=== PATIENT | female | born 1980 | race Caucasian/White ===

== ENCOUNTER 2023-03-17 17:41 | Emergency (ER) | payer OTHER, MEDICAID, SELFPAY ==
[2023-03-17] VITALS (7 sets, daily range): BP systolic 127–155; BP diastolic 72–97; PULSE 66–79; RESP 16–23; TEMP 36.7; O2SAT 96–99; BMI 33.5
[2023-03-17 18:40] LABS: Add Manual Diff / Slide Review NO; Basophils Absolute Auto 0 /uL (0-100); Basophils Percent Auto 0.7 % (0-2); Eosinophils Absolute Auto 100 /uL (0-450); Eosinophils Percent Auto 1.6 % (2-4); Hematocrit 39.4 % (36-46); Hemoglobin 13.4 g/dL (12.0-16.0); Lymphocytes Absolute Auto 2300 /uL (1100-4500); Lymphocytes Percent Auto 33.6 % (25-40); Mean Corpuscular HGB Conc 34.1 % (30-36); Mean Corpuscular Hemoglobin 28.6 PG (26-34); Mean Corpuscular Volume 83.9 fL (80-100); Monocytes Absolute Auto 400 /uL (0-900); Neutrophils Absolute Auto 4000 /uL (1500-7000); Neutrophils Percent Auto 58.1 % (50-75); Platelet Count 315 X10^3/uL (150-400); Red Cell Distribution Width 12.6 % (11.6-14.8); White Blood Cell Count 6.8 X10^3/uL (4.5-11.0)
[2023-03-17 18:52] LABS: Alanine Aminotransferase 23 IU/L (<35); Albumin Globulin Ratio 1.2 (1.0-2.8); Alkaline Phosphatase 47 U/L (38-126); Aspartate Aminotransferase 23 IU/L (14-36); BUN Creatinine Ratio 13.7 (6-22); Bilirubin Total 0.5 mg/dL (0.2-1.3); Blood Urea Nitrogen 7 mg/dL (7-17); Calcium 8.9 mg/dL (8.4-10.2); Carbon Dioxide 26 mmol/L (22-32); Chloride 100 mmol/L (98-107); Estimated Glomerular Filt Rate > 60 mL/min (>60); Globulin 3.3 g/dL (1.7-4.1); Glucose 186 mg/dL (70-100); HEMOLYSIS < 15 (0-50); Lipase 77 U/L (23-300); Potassium 3.7 mmol/L (3.4-5.1); Sodium 134 mmol/L (137-145); Total Protein 7.3 g/dL (6.3-8.2)
--- NOTE | 2023-03-17 19:05 | ED.GENADULT ---
HPI - General Adult General Chief complaint: Abdominal Pain Stated complaint: stomach pain, high blood sugars Time Seen by Provider: 03/17/23 18:06 Source: patient Mode of arrival: Ambulatory History of Present Illness HPI narrative: Patient is a 42-year-old female. History of insulin-dependent diabetes. Is here for evaluation of just over 24 hours of generalized abdominal discomfort, nausea, also having problems keeping her blood sugars under control. Her continuous glucose monitor have reported ?high? readings. She has been doing all of her insulin as directed. She denies any fevers. No urinary symptoms. No change in bowel habits. No prior abdominal surgeries. No sore throat or any other specific source of infection. Related Data Home Medications Medication Instructions Recorded Confirmed acyclovir 200 mg capsule 400 mg PO BID 03/17/23 03/17/23 albuterol sulfate 90 mcg/actuation 2 puff inhalation Q4-6H PRN asthma 03/17/23 03/17/23 aerosol inhaler (Ventolin HFA) atorvastatin 40 mg tablet 40 mg PO ONCE PM 03/17/23 03/17/23 cholecalciferol (vitamin D3) 03/17/23 dorzolamide 22.3 mg-timolol 6.8 1 drp EYE-BOTH BID 03/17/23 03/17/23 mg/mL eye drops [id number]-vfrm 225 mg/1.5 mL 225 mg SUBCUT QMONTH 03/17/23 03/17/23 subcutaneous auto-injector (Ajovy) gabapentin 300 mg capsule 300 mg PO 3XD 03/17/23 03/17/23 hydrochlorothiazide 12.5 mg capsule 12.5 mg PO DAILY 03/17/23 03/17/23 insulin aspart U-100 100 unit/mL See Rx Instructions .Route .COMPLEX 03/17/23 03/17/23 (3 mL) subcutaneous pen (Novolog FlexPen U-100 Insulin aspart) insulin glargine 100 unit/mL (3 See Rx Instructions .Route .COMPLEX 03/17/23 03/17/23 mL) subcutaneous pen (Basaglar KwikPen U-100 Insulin) lamotrigine 150 mg tablet 150 mg PO BID 03/17/23 03/17/23 latanoprost 0.005 % eye drops 1 drp EYE-BOTH ONCE PM 03/17/23 03/17/23 levothyroxine 100 mcg tablet 100 mcg PO DAILY 03/17/23 03/17/23 lisinopril 40 mg tablet 40 mg PO DAILY 03/17/23 03/17/23 lorazepam 0.5 mg tablet 0.5 mg PO BID PRN Sleep 03/17/23 03/17/23 norgestimate 0.25 mg-ethinyl 1 tab PO DAILY 03/17/23 03/17/23 estradiol 35 mcg tablet prazosin 5 mg capsule 5 mg PO ONCE PM 03/17/23 03/17/23 trazodone 100 mg tablet 100 mg PO ONCE PM 03/17/23 03/17/23 Allergies Allergy/AdvReac Type Severity Reaction Status Date / Time acetaminophen [From Chromo] Allergy Verified 03/17/23 18:25 hydrocodone [From Chromo] Allergy Verified 03/17/23 18:25 NSAIDS (Non-Steroidal Allergy Verified 03/17/23 18:25 Anti-Inflamma sumatriptan Allergy Verified 03/17/23 18:25 topiramate [From Topamax] Allergy Verified 03/17/23 18:25 [id number] Antimigraine Allergy Verified 03/17/23 18:25 Agents Review of Systems Review of Systems ROS Unobtainable: All systems reviewed & are unremarkable except as noted in HPI and below Patient History Social History Smoking Status: Never smoker Smoking Status: Never smoker Substance Use Type: does not use Exam Initial Vital Signs Initial Vital Signs: Vital Signs Temperature 98.1 F 03/17/23 18:10 Pulse Rate 79 03/17/23 18:10 Respiratory Rate 20 03/17/23 18:10 Blood Pressure 152/88 H 03/17/23 18:10 Pulse Oximetry 97 03/17/23 18:10 Oxygen Delivery Method Room Air 03/17/23 18:10 Const General: cooperative, comfortable and No ill appearing HENME Head: normal to inspection and normocephalic Resp Effort & Inspection: normal respiratory effort Auscultation: clear to auscultation bilaterally Cardio Rate: regular rate Rhythm: regular rhythm GI Inspection: normal to inspection and non-distended Palpation: soft, No firm, No guarding and tender (Diffuse) Neuro General: patient alert and patient awake Extrem General: normal to inspection and capillary refill normal Course Orders Ordered: ED Orders 03/17/23 18:15 Urine Microscopic Stat 03/17/23 18:16 EKG-12 Lead Stat 03/17/23 18:31 Complete Blood Count AUTO DIFF Stat Comprehensive Metabolic Panel Stat Lipase Stat 03/17/23 19:05 CT abdomen pelvis w con Stat Discontinued Medications Sodium Chloride (Normal Saline 0.9%) 1,000 mls @ 1,000 mls/hr IV BOLUS ONE Stop: 03/17/23 20:04 Last Infusion: 03/17/23 20:16 Dose: Infused Documented By: Admin: 03/17/23 19:12 Dose: 1,000 mls/hr Documented By: LEONEL Ondansetron HCl (Ondansetron 4 Mg/2 Ml Inj) 4 mg IV NOW PRN PRN Reason: Nausea And Vomiting Last Admin: 03/17/23 19:12 Dose: 4 mg Documented By: LEONEL Ondansetron HCl (Ondansetron 4 Mg Odt) 4 mg PO NOW PRN PRN Reason: Nausea And Vomiting Vital Signs Vital signs: Vital Signs - 8 hr 03/17/23 18:10 03/17/23 18:54 03/17/23 19:00 Temperature 98.1 F Pulse Rate 79 66 78 Respiratory Rate 20 23 Blood Pressure 152/88 H Pulse Oximetry 97 Oxygen Delivery Method Room Air 03/17/23 19:28 03/17/23 19:28 03/17/23 19:30 Temperature Pulse Rate 70 67 Respiratory Rate 22 17 Blood Pressure 127/90 Pulse Oximetry 97 96 Oxygen Delivery Method 03/17/23 19:30 03/17/23 19:51 03/17/23 19:51 Temperature Pulse Rate 76 Respiratory Rate 16 Blood Pressure 136/72 151/94 H Pulse Oximetry 98 Oxygen Delivery Method 03/17/23 20:00 03/17/23 20:00 Temperature Pulse Rate 77 Respiratory Rate 21 Blood Pressure 155/97 H Pulse Oximetry 99 Oxygen Delivery Method Medical Decision Making Lab Data Lab results reviewed: Yes I reviewed the patient's lab results. 03/17/23 18:31 03/17/23 18:31 Labs: Lab Results 03/17/23 03/17/23 Range/Units 18:15 18:31 WBC 6.8 (4.5-11.0) X10^3/uL RBC 4.70 (4.0-5.2) X10^6/uL Hgb 13.4 (12.0-16.0) g/dL Hct 39.4 (36-46) % MCV 83.9 (80-100) fL MCH 28.6 (26-34) PG MCHC 34.1 (30-36) % RDW 12.6 (11.6-14.8) % Plt Count 315 (150-400) X10^3/uL Neut % (Auto) 58.1 (50-75) % Lymph % (Auto) 33.6 (25-40) % [place] % (Auto) 6.0 (3-14) % Eos % (Auto) 1.6 L (2-4) % Baso % (Auto) 0.7 (0-2) % Neut # (Auto) 4000 (3267-3440) /uL Lymph # (Auto) 2300 (2641-7876) /uL [place] # (Auto) 400 (0-900) /uL Eos # (Auto) 100 (0-450) /uL Baso # (Auto) 0 (0-100) /uL Sodium 134 L (137-145) mmol/L Potassium 3.7 (3.4-5.1) mmol/L Chloride 100 (98-107) mmol/L Carbon Dioxide 26 (22-32) mmol/L BUN 7 (7-17) mg/dL Creatinine 0.51 L (0.52-1.04) mg/dL Estimated GFR > 60 (>60) mL/min BUN/Creatinine Ratio 13.7 (6-22) Glucose 186 H (70-100) mg/dL Calcium 8.9 (8.4-10.2) mg/dL Total Bilirubin 0.5 (0.2-1.3) mg/dL AST 23 (14-36) IU/L ALT 23 (<35) IU/L Alkaline Phosphatase 47 (38-126) U/L Total Protein 7.3 (6.3-8.2) g/dL Albumin 4.0 (3.5-5.0) g/dL Globulin 3.3 (1.7-4.1) g/dL Albumin/Globulin Ratio 1.2 (1.0-2.8) Lipase 77 (23-300) U/L Urine RBC None seen (0-5/HPF) Urine WBC 0-1/hpf (0-5/HPF) Ur Squamous Epith Cells 5-10 /hpf H (0-5/HPF) Ur Transition Epith Cell 0-1/hpf (0-5/HPF) Urine Bacteria Many (>30) H (None) Ur Culture Indicated? Cult not indicated Vol Urine Centrifuged 10ml (spun) Point of Care Testing Test Results Negative Urine Dip Bedside Urine Glucose 250 mg/dl Bedside Urine Bilirubin - Negative Bedside Urine Ketone - Negative Urine Specific [place] 1.010 Bedside Urine Occult Blood - Negative Bedside Urine pH 6.0 Bedside Urine Protein - Negative Bedside Urine Urobilinogen - Negative Bedside Urine Nitrite - Negative Bedside Urine Leukocytes - Negative Esterase Point of care testing: Point of Care Testing Test Results Negative Urine Dip Bedside Urine Glucose 250 mg/dl Bedside Urine Bilirubin - Negative Bedside Urine Ketone - Negative Urine Specific [place] 1.010 Bedside Urine Occult Blood - Negative Bedside Urine pH 6.0 Bedside Urine Protein - Negative Bedside Urine Urobilinogen - Negative Bedside Urine Nitrite - Negative Bedside Urine Leukocytes - Negative Esterase Imaging Data CT scan - abdomen/pelvis: Radiologist's Impression: PROCEDURE: CT ABDOMEN PELVIS W CON INDICATIONS: Generalized abdominal pain and hyperglycemia and diabetic TECHNIQUE: After the administration of intravenous contrast, axial sections acquired from the lung bases to the pubic symphysis. Coronal and sagittal reformats were performed. For radiation dose reduction, the following was used: automated exposure control, adjustment of mA and/or kV according to patient size. COMPARISON: None. FINDINGS: Image quality: Diagnostic. Lower Chest: No significant findings. ABDOMEN: Liver: No solid mass. Normal size. Moderate hepatic steatosis. Gallbladder: No radiopaque gallstones or wall thickening. Biliary ducts: No biliary dilation. Pancreas: No ductal dilation. Spleen: Size is within normal limits. Adrenal Glands: No adrenal nodules. Kidneys and Ureters: No hydronephrosis. No solid mass. No complex renal cystic lesion which requires follow up. Stomach and Bowel: Normal bowel caliber, without significant wall thickening. Moderate amount of stool in colon. Peritoneum: No abnormal intraperitoneal fluid. No free air. Ventral Wall: No hernia. Abdominal Nodes: No retroperitoneal or mesenteric adenopathy by size criteria. Vessels: Aorta and inferior vena cava are normal in size. PELVIS: Pelvic Organs: Unremarkable. Bladder: Bladder wall is mildly thickened with mild stranding. Pelvic Nodes: No enlarged lymph nodes. Miscellaneous: No inguinal hernias are seen. Bones: No aggressive osseous abnormality. IMPRESSION: 1. Bladder wall is mildly thickened with mild pericystic stranding suggesting suggesting cystitis. 2. Moderate amount of stool in colon. 3. Hepatic steatosis. MDM Narrative Medical decision making narrative: Blood sugars here in the emergency department relatively unremarkable. She has not in DKA. CT scan shows no acute pathology. She has no UTI symptoms. No indication for surgical consultation. No indication for antibiotics. She states she is feeling better after nausea and fluids. She has nausea medicine at home. Will discharge home with return precautions. Do changes to any of his medications currently. She expressed understanding and agreement. Discharge Plan Departure Patient Disposition: Home Clinical Impression: Hyperglycemia, Abdominal pain Instructions: DI for Abdominal Pain-Adult Activity Restrictions/Additional Instructions: Recommend that you continue to take all of your medications as directed. Tomorrow morning contact your primary care doctor for a follow-up. Return to the emergency department for new symptoms. Prescriptions: No Action latanoprost 0.005 % drops 1 drp EYE-BOTH ONCE PM atorvastatin 40 mg tablet 40 mg PO ONCE PM lamotrigine 150 mg tablet 150 mg PO BID norgestimate-ethinyl estradiol 0.25-35 mg-mcg tablet 1 tab PO DAILY levothyroxine 100 mcg tablet 100 mcg PO DAILY prazosin 5 mg capsule 5 mg PO ONCE PM lorazepam 0.5 mg tablet 0.5 mg PO BID PRN (Reason: Sleep) trazodone 100 mg tablet 100 mg PO ONCE PM hydrochlorothiazide 12.5 mg Capsule 12.5 mg PO DAILY gabapentin 300 mg capsule 300 mg PO 3XD dorzolamide-timolol 22.3-6.8 mg/mL drops 1 drp EYE-BOTH BID acyclovir 200 mg capsule 400 mg PO BID albuterol sulfate [Ventolin HFA] 90 mcg/actuation Hfa Aerosol Inhaler 2 puff INHALATION Q4-6H PRN (Reason: asthma) lisinopril 40 mg tablet 40 mg PO DAILY insulin aspart U-100 [Novolog FlexPen U-100 Insulin] 100 unit/mL (3 mL) insulin pen See Rx Instructions .ROUTE .COMPLEX Patient Comments: inject subcutaneously as directed PER SLIDING SCALE 100-150: 8 UN... (REFER TO PRESCRIPTION NOTES). Rx Instructions: inject subcutaneously as directed PER SLIDING SCALE 100-150: 8 UN... (REFER TO PRESCRIPTION NOTES). Instructions not finished in computer. insulin glargine [Basaglar KwikPen U-100 Insulin] 100 unit/mL (3 mL) Insulin Pen See Rx Instructions .ROUTE .COMPLEX Rx Instructions: 10 units AM 22 units PM Ajovy Autoinjector 225 mg/1.5 mL Auto-Injector 225 mg SUBCUT QMONTH cholecalciferol (vitamin D3) Referrals: Teressa Campos PA-C [Primary Care Provider] - Stand Alone Forms: Patient Portal/API
[2023-03-17] MEDS: ONDANSETRON 4 MG/2 ML INJ IV (19:12)
[2023-03-17] MEDS: SODIUM CHLORIDE 0.9% 1,000 ML 1000 ML IV (19:12)
[2023-03-17 21:00] LABS: Urine Volume 10mL (spun)
[2023-03-17 21:01] LABS: Bacteria Urine Many (>30); Culture Indicated Urine Cult Not Indicated; RBC Urine None Seen (0-5/HPF); Squamous Epithelial Cell Urine 5-10 /HPF (0-5/HPF); Transitional Epi Cells Urine 0-1/HPF (0-5/HPF); WBC Urine 0-1/HPF (0-5/HPF)
== END 2023-03-17 20:23 | disposition home or self-care (01) ==
PROVIDERS: Emergency Provider Emergency Medicine; PCP Physician Assistant
DX: E11.65 Type 2 diabetes mellitus with hyperglycemia (principal); R10.9 Unspecified abdominal pain; R11.2 Nausea with vomiting, unspecified
CPT/HCPCS: 36415; 74177; 80053; 81003; 81015; 81025; 83690; 85025; 96361; 96374; 99284; J2405

== ENCOUNTER 2023-11-04 14:40 | Emergency (ER) | payer OTHER, MEDICAID, SELFPAY ==
[2023-11-04] VITALS (11 sets, daily range): BP systolic 120–201; BP diastolic 65–109; PULSE 59–78; RESP 15–25; TEMP 36.1; O2SAT 91–99; BMI 36.0
--- NOTE | 2023-11-04 15:00 | DI.CT.S_ITS ---
PROCEDURE: CT ANGIO HEAD AND NECK INDICATIONS: Headache weakness numbness TECHNIQUE: After the administration of intravenous contrast, 1 mm thick sections acquired from the aortic arch through the [place]. 3-dimensional uwfmizh-msgpgmcrs-jaalbjwesz (MIP) and/or volume rendering reformats were acquired of the central intracranial vasculature and neck separately. For radiation dose reduction, the following was used: automated exposure control, adjustment of mA and/or kV according to patient size. COMPARISON: [facility], CT, CT STROKE, 11/04/2023, 15:04. FINDINGS: Image quality: Diagnostic. BRAIN: See separately dictated CT head report 11/04/2023. HEAD CT ANGIOGRAPHY: Anterior circulation: Intracranial internal carotid arteries are normal in size and flow. The flow within the paired anterior cerebral arteries is normal and symmetric. The flow within the middle cerebral arteries is normal and symmetric. The anterior communicating artery is seen. No aneurysms are seen. Posterior circulation: Visualized portions of the vertebral arteries demonstrate normal caliber, and join to form a normal appearing basilar artery. Flow within the posterior cerebral arteries is normal and symmetric. No aneurysms are seen. NECK CT ANGIOGRAPHY: Carotid system: The great vessels demonstrate a conventional anatomy as they arise from the aortic arch. The origins of the common carotid arteries appear patent. The common carotid arteries demonstrate normal caliber and courses. The bifurcation regions are both widely patent. The internal carotid arteries demonstrate normal calibers and courses. Posterior circulation: The origins of the vertebral arteries both appear widely patent. The more superior extracranial portions of both vertebral arteries also demonstrate normal courses and calibers. They join to form a normal appearing basilar artery. Soft tissues: Visualized neck soft tissues demonstrate no suspicious abnormalities. Bones: No suspicious bony lesions. Visualized cervical spine appears normally aligned. IMPRESSION: No significant intracranial arterial abnormality is seen. No significant abnormality is seen within the arteries of the neck. Any quantitative measurements of stenosis were performed using NASCET criteria. Dictated by: Nella Iglesias M.D. on 11/04/2023 at 15:43 Approved by: Nella Iglesias M.D. on 11/04/2023 at 15:44
--- NOTE | 2023-11-04 15:00 | DI.CT.S_ITS ---
PROCEDURE: CT STROKE INDICATIONS: Headache weakness numbness TECHNIQUE: Noncontrast 4.5 mm thick angled axial sections acquired from the foramen magnum to the vertex, with coronal reformats. For radiation dose reduction, the following was used: automated exposure control, adjustment of mA and/or kV according to patient size. COMPARISON: None. FINDINGS: Image quality: Diagnostic. CSF spaces: Basal cisterns are patent. No extra-axial fluid collections. Ventricles are normal in size and shape. Brain: No midline shift. No intracranial masses or hemorrhage. [place]-white matter interface is normal. Skull and face: Left eye prosthesis. Calvarium and visualized facial bones are intact, without suspicious lesions. Sinuses: Visualized sinuses and mastoids are clear. IMPRESSION: Comment: Findings were discussed with Dr. Bills on 11/04/2023 at 1518 hours This study fulfills neurological imaging criteria for inclusion or exclusion of acute stroke therapies based on available published neurological imaging guidelines. Dictated by: Donato Sandoval M.D. on 11/04/2023 at 15:18 Approved by: Donato Sandoval M.D. on 11/04/2023 at 15:20
--- NOTE | 2023-11-04 15:05 | EKG_ITS ---
[address] [address] Test Date: 2023-11-04 Pat Name: Stephanie Dorsey Department: [facility] Room: Gender: Female Certified Rehabilitation Counselor: RALPH : 1980 Requested By: Order Number: [id number] Reading MD: Osvaldo Walker Measurements Intervals [place] Rate: 63 P: 43 MA: 156 QRS: 4 QRSD: 80 T: 6 QT: 420 QTc: 429 Interpretive Statements Normal sinus rhythm with sinus arrhythmia Electronically Signed On 11-04-2023 15:23:55 PDT by Osvaldo Walker
--- NOTE | 2023-11-04 15:06 | ED_ITS ---
HPI - Neuro Symptoms/Deficit General Chief Complaint: Neuro Symptoms/Deficit Stated Complaint: fell yesterday, LOC, high BP Time Seen by Provider: 11/04/23 15:00 Source: patient Mode of arrival: Ambulatory History of Present Illness HPI Narrative: Patient has history of complex migraine that causes left-sided weakness and numbness also has history of stroke that affected her left side back in May 2023 in [place]. Patient is not on any blood thinners. She is diabetic with insulin control. She states she was seen at [facility] yesterday, she got dizzy and fell onto the table. No loss of consciousness. Patient is not on any blood thinners. Today just prior to arrival at 2:50 p.m. patient states had sudden-onset headache not worst of life feels like her typical migraine headaches with left face left arm left leg numbness. Blood pressure noted she states it has usually not this high. She is on lisinopril hydrochlorothiazide. On Anticoagulants: No Related Data Home Medications Medication Instructions Recorded Confirmed acyclovir 200 mg capsule 400 mg PO BID 03/17/23 03/17/23 albuterol sulfate 90 mcg/actuation 2 puff inhalation Q4-6H PRN asthma 03/17/23 03/17/23 aerosol inhaler (Ventolin HFA) atorvastatin 40 mg tablet 40 mg PO ONCE PM 03/17/23 03/17/23 cholecalciferol (vitamin D3) 03/17/23 dorzolamide 22.3 mg-timolol 6.8 1 drp EYE-BOTH BID 03/17/23 03/17/23 mg/mL eye drops [id number] 225 mg/1.5 mL 225 mg SUBCUT QMONTH 03/17/23 03/17/23 subcutaneous auto-injector (Ajovy) gabapentin 300 mg capsule 300 mg PO 3XD 03/17/23 03/17/23 hydrochlorothiazide 12.5 mg capsule 12.5 mg PO DAILY 03/17/23 03/17/23 insulin aspart U-100 100 unit/mL See Rx Instructions .Route .COMPLEX 03/17/23 03/17/23 (3 mL) subcutaneous pen (Novolog FlexPen U-100 Insulin aspart) insulin glargine 100 unit/mL (3 See Rx Instructions .Route .COMPLEX 03/17/23 03/17/23 mL) subcutaneous pen (Basaglar KwikPen U-100 Insulin) lamotrigine 150 mg tablet 150 mg PO BID 03/17/23 03/17/23 latanoprost 0.005 % eye drops 1 drp EYE-BOTH ONCE PM 03/17/23 03/17/23 levothyroxine 100 mcg tablet 100 mcg PO DAILY 03/17/23 03/17/23 lisinopril 40 mg tablet 40 mg PO DAILY 03/17/23 03/17/23 lorazepam 0.5 mg tablet 0.5 mg PO BID PRN Sleep 03/17/23 03/17/23 norgestimate 0.25 mg-ethinyl 1 tab PO DAILY 03/17/23 03/17/23 estradiol 35 mcg tablet prazosin 5 mg capsule 5 mg PO ONCE PM 03/17/23 03/17/23 trazodone 100 mg tablet 100 mg PO ONCE PM 03/17/23 03/17/23 Allergies Allergy/AdvReac Type Severity Reaction Status Date / Time acetaminophen [From [place]] Allergy Verified 11/04/23 15:03 hydrocodone [From [place]] Allergy Verified 11/04/23 15:03 NSAIDS (Non-Steroidal Allergy Verified 11/04/23 15:03 Anti-Inflamma sumatriptan Allergy Verified 11/04/23 15:03 topiramate [From Topamax] Allergy Verified 11/04/23 15:03 [id number] Antimigraine Allergy Verified 11/04/23 15:03 Agents Review of Systems Review of Systems Narrative: GENERAL: negative chills, fatigue, malaise, fever, sweats. HEENT: negative sinus pain, ear pain, sore throat RESPIRATORY: negative dyspnea, cough CARDIOVASCULAR: negative chest pain, palpitations GASTROINTESTINAL: negative nausea, vomiting, abdominal pain : negative dysuria, frequency, hematuria MUSCULOSKELETAL: negative muscle or bony pain SKIN: negative rash, skin lesions NEUROLOGIC: Positive weakness, numbness, positive headache ROS Unobtainable: All systems reviewed & are unremarkable except as noted in HPI and below Hematologic/Lymphatic On Anticoagulants: No Patient History Social History Smoking Status: Never smoker Smoking Status: Never smoker Substance Use Type: does not use Exam Narrative Exam Narrative: GENERAL: in no distress, not toxic not dyspneic HEAD: Normocephalic. EYES: Pupils equal round, patient is blind. ENT: Mucous membranes moist. NECK: Trachea midline. CARDIOVASCULAR: Regular rate and rhythm RESPIRATORY: Clear to auscultation. Breath sounds equal bilaterally. No wheezes, rales, or rhonchi. GASTROINTESTINAL: Abdomen soft, non-tender EXTREMITIES: No gross deformities. NEURO: AOx4. Clear speech, light touch feels different on left face forehead left arm and left leg. 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 Negative pronator drift. Steady bilateral leg lifts off the bed. SKIN: Warm and dry PSYCH: Not anxious, is cooperative Initial Vital Signs Initial Vital Signs: Vital Signs Temperature 97 F L 11/04/23 14:49 Pulse Rate 66 11/04/23 14:49 Respiratory Rate 22 11/04/23 14:49 Blood Pressure 201/109 H 11/04/23 14:49 Pulse Oximetry 97 11/04/23 14:49 Oxygen Delivery Method Room Air 11/04/23 14:49 Scores NIH Stroke Scale Level of Conciousness: Alert, keenly responsive Ask month/age: Answers both questions correctly. Open/close eyes, close hand: Performs both tasks correctly Facial palsy: Minor paralysis, flattened nasolabial fold, asymmetry on smiling Left arm drift: No drift for full 10 sec Right arm drift: No drift for full 10 sec Left leg drift: No drift for full 5 sec Right leg drift: No drift for full 5 sec Limb ataxia: Absent Sensory on face/arms/legs: Mild to moderate sensory loss, can tell touch Best language: No aphasia, normal Dysarthria: Normal Extinction or inattention: No abnormality Course Orders Ordered: Discontinued Medications Diphenhydramine HCl (Diphenhydramine 50 Mg/Ml Vial) 25 mg IV NOW ONE Stop: 11/04/23 16:09 Last Admin: 11/04/23 16:42 Dose: 25 mg Documented By: LEONEL Sodium Chloride (Normal Saline 0.9%) 1,000 mls @ 1,000 mls/hr IV BOLUS ONE Stop: 11/04/23 17:07 Last Infusion: 11/04/23 17:24 Dose: Infused Documented By: Admin: 11/04/23 16:38 Dose: 1,000 mls/hr Documented By: LEONEL Magnesium Sulfate (Magnesium Sulfate) 2 gm in 50 mls @ 150 mls/hr IV NOW ONE Stop: 11/04/23 16:27 Last Infusion: 11/04/23 17:07 Dose: Infused Documented By: LEONEL Co-signed By: VALENTINA Admin: 11/04/23 16:38 Dose: 150 mls/hr Documented By: LEONEL Co-signed By: MARIE Ketorolac Tromethamine (Ketorolac 30 Mg/Ml Vial) 15 mg IV NOW ONE Stop: 11/04/23 16:09 Last Admin: 11/04/23 16:42 Dose: 15 mg Documented By: LEONEL Metoclopramide HCl (Metoclopramide 10 Mg/2 Ml Inj) 10 mg IV NOW ONE Stop: 11/04/23 16:09 Last Admin: 11/04/23 16:42 Dose: 10 mg Documented By: LEONEL Ondansetron HCl (Ondansetron 4 Mg/2 Ml Inj) 4 mg IV NOW ONE Stop: 11/04/23 15:06 Last Admin: 11/04/23 16:42 Dose: 4 mg Documented By: LEONEL Vital Signs Vital signs: Vital Signs - 8 hr 11/04/23 14:49 Temperature 97 F L Pulse Rate 66 Respiratory Rate 22 Blood Pressure 201/109 H Pulse Oximetry 97 Oxygen Delivery Method Room Air MDM - Neuro Symptoms/Deficit Lab Data 11/04/23 15:13 11/04/23 15:13 Labs: Lab Results 11/04/23 Range/Units 15:13 WBC 6.9 (4.5-11.0) X10^3/uL RBC 4.76 (4.0-5.2) X10^6/uL Hgb 13.5 (12.0-16.0) g/dL Hct 40.3 (36-46) % MCV 84.6 (80-100) fL MCH 28.3 (26-34) PG MCHC 33.4 (30-36) % RDW 12.7 (11.6-14.8) % Plt Count 341 (150-400) X10^3/uL Neut % (Auto) 53.3 (50-75) % Lymph % (Auto) 38.0 (25-40) % [place] % (Auto) 6.0 (3-14) % Eos % (Auto) 2.0 (2-4) % Baso % (Auto) 0.7 (0-2) % Neut # (Auto) 3700 (4955-1997) /uL Lymph # (Auto) 2600 (9716-0459) /uL [place] # (Auto) 400 (0-900) /uL Eos # (Auto) 100 (0-450) /uL Baso # (Auto) 100 (0-100) /uL PT 9.7 (9.4-12.5) SECONDS INR 0.8 L (0.9-1.3) APTT 31 (25.1-36.5) SECONDS Sodium 137 (137-145) mmol/L Potassium 3.8 (3.4-5.1) mmol/L Chloride 105 (98-107) mmol/L Carbon Dioxide 24 (22-32) mmol/L BUN 6 L (7-17) mg/dL Creatinine 0.60 (0.52-1.04) mg/dL Estimated GFR > 60 (>60) mL/min BUN/Creatinine Ratio 10.0 (6-22) Glucose 168 H (70-100) mg/dL Calcium 9.0 (8.4-10.2) mg/dL Total Bilirubin 0.3 (0.2-1.3) mg/dL AST 45 H (14-36) IU/L ALT 38 H (<35) IU/L Alkaline Phosphatase 51 (38-126) U/L Total Protein 6.8 (6.3-8.2) g/dL Albumin 3.9 (3.5-5.0) g/dL Globulin 2.9 (1.7-4.1) g/dL Albumin/Globulin Ratio 1.3 (1.0-2.8) Serum , Qual Negative (Negative) Point of Care Testing Test Results Negative Urine Dip Bedside Urine Glucose Negative Bedside Urine Bilirubin - Negative Bedside Urine Ketone - Negative Urine Specific [place] 1.015 Bedside Urine Occult Blood +/- Bedside Urine pH 5.5 Bedside Urine Protein - Negative Bedside Urine Urobilinogen - Negative Bedside Urine Nitrite - Negative Bedside Urine Leukocytes - Negative Esterase Imaging Data CT scan - head: Radiologist's Impression: [address] [address] [address] Scan Report Signed Patient: Stephanie Dorsey MR#: [id number] : 1980 Acct:[id number] Age/Sex: 42 / F Date of Service: 11/04/23 Loc: ED Accession Number: [id number] Procedure: CT Stroke Ordering Provider: Claus Bills MD PROCEDURE: CT STROKE INDICATIONS: Headache weakness numbness TECHNIQUE: Noncontrast 4.5 mm thick angled axial sections acquired from the foramen magnum to the vertex, with coronal reformats. For radiation dose reduction, the following was used: automated exposure control, adjustment of mA and/or kV according to patient size. COMPARISON: None. FINDINGS: Image quality: Diagnostic. CSF spaces: Basal cisterns are patent. No extra-axial fluid collections. Ventricles are normal in size and shape. Brain: No midline shift. No intracranial masses or hemorrhage. [place]-white matter interface is normal. Skull and face: Left eye prosthesis. Calvarium and visualized facial bones are intact, without suspicious lesions. Sinuses: Visualized sinuses and mastoids are clear. IMPRESSION: Comment: Findings were discussed with Dr. Bills on 11/04/2023 at 1518 hours This study fulfills neurological imaging criteria for inclusion or exclusion of acute stroke therapies based on available published neurological imaging guidelines. Dictated by: Donato Sandoval M.D. on 11/04/2023 at 15:18 Approved by: Donato Sandoval M.D. on 11/04/2023 at 15:20 CTA - brain/neck: Radiologist's Impression: [place] [address] CT Scan Report Signed Patient: Stephanie Dorsey MR#: [id number] : 1980 Acct:[id number] Age/Sex: 42 / F Date of Service: 11/04/23 Loc: ED Accession Number: [id number] Procedure: CT angio head and neck Ordering Provider: Claus Bills MD PROCEDURE: CT ANGIO HEAD AND NECK INDICATIONS: Headache weakness numbness TECHNIQUE: After the administration of intravenous contrast, 1 mm thick sections acquired from the aortic arch through the [place] of [place]. 3-dimensional ryzxcal-iixtdfcka-sdlmiomxfn (MIP) and/or volume rendering reformats were acquired of the central intracranial vasculature and neck separately. For radiation dose reduction, the following was used: automated exposure control, adjustment of mA and/or kV according to patient size. COMPARISON: [facility], CT, CT STROKE, 11/04/2023, 15:04. FINDINGS: Image quality: Diagnostic. BRAIN: See separately dictated CT head report 11/04/2023. HEAD CT ANGIOGRAPHY: Anterior circulation: Intracranial internal carotid arteries are normal in size and flow. The flow within the paired anterior cerebral arteries is normal and symmetric. The flow within the middle cerebral arteries is normal and symmetric. The anterior communicating artery is seen. No aneurysms are seen. Posterior circulation: Visualized portions of the vertebral arteries demonstrate normal caliber, and join to form a normal appearing basilar artery. Flow within the posterior cerebral arteries is normal and symmetric. No aneurysms are seen. NECK CT ANGIOGRAPHY: Carotid system: The great vessels demonstrate a conventional anatomy as they arise from the aortic arch. The origins of the common carotid arteries appear patent. The common carotid arteries demonstrate normal caliber and courses. The bifurcation regions are both widely patent. The internal carotid arteries demonstrate normal calibers and courses. Posterior circulation: The origins of the vertebral arteries both appear widely patent. The more superior extracranial portions of both vertebral arteries also demonstrate normal courses and calibers. They join to form a normal appearing basilar artery. Soft tissues: Visualized neck soft tissues demonstrate no suspicious abnormalities. Bones: No suspicious bony lesions. Visualized cervical spine appears normally aligned. IMPRESSION: No significant intracranial arterial abnormality is seen. No significant abnormality is seen within the arteries of the neck. Any quantitative measurements of stenosis were performed using NASCET criteria. Dictated by: Nella Iglesias M.D. on 11/04/2023 at 15:43 Approved by: Nella Iglesias M.D. on 11/04/2023 at 15:44 [facility] Narrative Medical decision making narrative: Patient has history of complex migraine that causes left-sided weakness and numbness also has history of stroke that affected her left side back in May 2023 in [place]. Patient is not on any blood thinners. She is diabetic with insulin control. She states she was seen at [facility] yesterday, she got dizzy and fell onto the table. No loss of consciousness. Patient is not on any blood thinners. Today just prior to arrival at 2:50 p.m. patient states had sudden-onset headache not worst of life feels like her typical migraine headaches with left face left arm left leg numbness. Blood pressure noted she states it has usually not this high. She is on lisinopril hydrochlorothiazide. After history and exam CT stroke CT angiogram head and neck EKG CBC CMP neurology consult blood pressure control [facility] Medical records reviewed: No recent visit for this complaint Differential considered: Includes but not limited to stroke TIA head bleed subdural hematoma epidural hematoma complex migraine headache Lab Test results independently reviewed as above. Pertinent findings: WBC 6.9 hemoglobin 13.5 INR 0.8 sodium 137 potassium 3.8 Independently reviewed EKG EKG normal sinus rhythm rate 63 Imaging studies independently reviewed: CT head CT angiogram head neck no acute finding Consultations: 3:[address] Sandoval radiologist CT head no acute finding CT without contrast 3:[address] Hayden, [facility] neurology, patient not candidate for TNK/tPA for paresthesia. She use tele video to evaluate patient 4:[address] Hayden has evaluated patient by tele video. Feels this is more migraine and blood pressure related not as TIA or stroke. Patient has had Toradol Benadryl Reglan in the past for her headache resolution. We will try this. As well as magnesium. If resolved, patient can be discharged home on baby aspirin daily. Treatments: Toradol Benadryl Reglan normal saline magnesium Re-evaluations: 3:39 p.m.. Systolic blood pressure has improved 170, patient still symptomatic Discussion: Patient is allergic to aspirin. Appropriate for discharge home. Symptoms resolved with migraine medication cocktail. Likely complex migraine headache. Return precautions reviewed with patient. She desires discharge home. She states she will be seeing a neurologist shortly as scheduled. Diagnosis: Complex migraine headache Discharge Plan Departure Patient Disposition: Home Clinical Impression: Headache, migraine Instructions: DI for Migraine Activity Restrictions/Additional Instructions: I am glad you are feeling better. Your exam and laboratory studies and imaging studies are reassuring. Stroke team was consulted. This is likely complex migraine headache. Please follow up with your neurologist as scheduled. . Return if worse if any questions or concerns. You may continue home medications. Prescriptions: No Action latanoprost 0.005 % drops 1 drp EYE-BOTH ONCE PM atorvastatin 40 mg tablet 40 mg PO ONCE PM lamotrigine 150 mg tablet 150 mg PO BID norgestimate-ethinyl estradiol 0.25-35 mg-mcg tablet 1 tab PO DAILY levothyroxine 100 mcg tablet 100 mcg PO DAILY prazosin 5 mg capsule 5 mg PO ONCE PM lorazepam 0.5 mg tablet 0.5 mg PO BID PRN (Reason: Sleep) trazodone 100 mg tablet 100 mg PO ONCE PM hydrochlorothiazide 12.5 mg Capsule 12.5 mg PO DAILY gabapentin 300 mg capsule 300 mg PO 3XD dorzolamide-timolol 22.3-6.8 mg/mL drops 1 drp EYE-BOTH BID acyclovir 200 mg capsule 400 mg PO BID albuterol sulfate [Ventolin HFA] 90 mcg/actuation Hfa Aerosol Inhaler 2 puff INHALATION Q4-6H PRN (Reason: asthma) lisinopril 40 mg tablet 40 mg PO DAILY insulin aspart U-100 [Novolog FlexPen U-100 Insulin] 100 unit/mL (3 mL) insulin pen See Rx Instructions .ROUTE .COMPLEX Patient Comments: inject subcutaneously as directed PER SLIDING SCALE 100-150: 8 UN... (REFER TO PRESCRIPTION NOTES). Rx Instructions: inject subcutaneously as directed PER SLIDING SCALE 100-150: 8 UN... (REFER TO PRESCRIPTION NOTES). Instructions not finished in computer. insulin glargine [Basaglar KwikPen U-100 Insulin] 100 unit/mL (3 mL) Insulin Pen See Rx Instructions .ROUTE .COMPLEX Rx Instructions: 10 units AM 22 units PM Ajovy Autoinjector 225 mg/1.5 mL Auto-Injector 225 mg SUBCUT QMONTH cholecalciferol (vitamin D3) Referrals: Teressa Campos PA-C [Primary Care Provider] - Stand Alone Forms: Patient Portal/API
[2023-11-04 15:17] LABS: Add Manual Diff / Slide Review NO; Basophils Absolute Auto 100 /uL (0-100); Basophils Percent Auto 0.7 % (0-2); Eosinophils Absolute Auto 100 /uL (0-450); Hematocrit 40.3 % (36-46); Hemoglobin 13.5 g/dL (12.0-16.0); Lymphocytes Absolute Auto 2600 /uL (1100-4500); Mean Corpuscular HGB Conc 33.4 % (30-36); Mean Corpuscular Hemoglobin 28.3 PG (26-34); Mean Corpuscular Volume 84.6 fL (80-100); Monocytes Absolute Auto 400 /uL (0-900); Neutrophils Absolute Auto 3700 /uL (1500-7000); Neutrophils Percent Auto 53.3 % (50-75); Platelet Count 341 X10^3/uL (150-400); Red Blood Cell Count 4.76 X10^6/uL (4.0-5.2); Red Cell Distribution Width 12.7 % (11.6-14.8); White Blood Cell Count 6.9 X10^3/uL (4.5-11.0)
[2023-11-04 15:30] LABS: INR 0.8 (0.9-1.3); Prothrombin Time 9.7 SECONDS (9.4-12.5)
[2023-11-04 15:32] LABS: Alanine Aminotransferase 38 IU/L (<35); Albumin 3.9 g/dL (3.5-5.0); Albumin Globulin Ratio 1.3 (1.0-2.8); Alkaline Phosphatase 51 U/L (38-126); Aspartate Aminotransferase 45 IU/L (14-36); Bilirubin Total 0.3 mg/dL (0.2-1.3); Blood Urea Nitrogen 6 mg/dL (7-17); Carbon Dioxide 24 mmol/L (22-32); Chloride 105 mmol/L (98-107); Estimated Glomerular Filt Rate > 60 mL/min (>60); Globulin 2.9 g/dL (1.7-4.1); Glucose 168 mg/dL (70-100); HEMOLYSIS < 15 (0-50); PTT Partial Thromboplastin Tim 31 SECONDS (25.1-36.5); Potassium 3.8 mmol/L (3.4-5.1); Sodium 137 mmol/L (137-145); Total Protein 6.8 g/dL (6.3-8.2)
[2023-11-04 15:35] LABS: Pregnancy Test Serum,Qual Negative (Negative)
[2023-11-04] MEDS: SODIUM CHLORIDE 0.9% 1,000 ML 1000 ML IV (16:38)
[2023-11-04] MEDS: MAGNESIUM SULFATE 2 GM/50 ML PIGGYBACK IV (16:38)
[2023-11-04] MEDS: diphenhydrAMINE 50 MG/ML VIAL 25 MG IV (16:42)
[2023-11-04] MEDS: KETOROLAC 30 MG/ML VIAL 15 MG IV (16:42)
[2023-11-04] MEDS: ONDANSETRON 4 MG/2 ML INJ IV (16:42)
[2023-11-04] MEDS: METOCLOPRAMIDE 10 MG/2 ML INJ IV (16:42)
--- NOTE | 2023-11-04 17:41 | PC.NURSE ---
pt states that she feels better after medication and fluids. 0/10 pain and nausea and dizziness have resolved.
== END 2023-11-04 17:57 | disposition home or self-care (01) ==
PROVIDERS: Emergency Provider Emergency Medicine; PCP Physician Assistant
DX: G43.909 Migraine, unspecified, not intractable, without status migrainosus (principal); R53.1 Weakness; R20.0 Anesthesia of skin; Z79.899 Other long term (current) drug therapy
CPT/HCPCS: 70450; 70496; 70498; 80053; 81003; 81025; 84703; 85025; 85610; 85730; 93005; 96361; 96374; 96375; 99284; J1200; J1885; J2405; J2765; J3475; Q9967

== ENCOUNTER 2024-02-27 07:56 | Emergency (ER) | payer OTHER, SELFPAY ==
[2024-02-27 08:06] VITALS: BP 162/101; PULSE 84; RESP 22; TEMP 36.7; O2SAT 96; BMI 34.3
[2024-02-27 08:58] VITALS: RESP 12; O2SAT 99
[2024-02-27] MEDS: ALBUTEROL 2.5 MG/3 ML NEB (ADULT) 5 MG INH (08:58)
[2024-02-27 09:00] VITALS: BP 147/84; PULSE 66; O2SAT 99
--- NOTE | 2024-02-27 09:03 | DI.RAD.S_ITS ---
PROCEDURE: XR CHEST 1V INDICATIONS: eval for PNA TECHNIQUE: One view of the chest was acquired. COMPARISON: None. FINDINGS: Surgical changes and devices: None. Lungs and pleura: Low lung volumes. No dense airspace disease or pleural effusions. Mediastinum: Normal heart size Bones and chest wall: Degenerative changes IMPRESSION: No acute radiographic abnormality on this single view study with low lung volumes. Dictated by: Edinson Nazario M.D. on 02/27/2024 at 8:39 Approved by: Edinson Nazario M.D. on 02/27/2024 at 8:40
[2024-02-27 09:30] VITALS: BP 146/66; PULSE 94; O2SAT 95
[2024-02-27 10:00] VITALS: BP 152/72; PULSE 99; O2SAT 94
--- NOTE | 2024-02-27 10:17 | ED_ITS ---
HPI - General Adult General Chief complaint: Shortness of Breath/Dyspnea Stated complaint: chest pain, asthma, poss pneumonia, diff breathing Time Seen by Provider: 02/27/24 09:02 Source: patient Mode of arrival: Ambulatory History of Present Illness HPI narrative: Patient was a 43-year-old female. Insulin-dependent diabetic. History of asthma. Stated that she had a respiratory illness several weeks ago. She states she was still having chest congestion, concern for pneumonia/bronchitis, difficulty breathing and pain with deep inspiration. Has a clear productive cough. Subjective fevers. No vomiting. No urinary symptoms. Related Data Home Medications Medication Instructions Recorded Confirmed acyclovir 200 mg capsule 400 mg PO BID 03/17/23 03/17/23 albuterol sulfate 90 mcg/actuation 2 puff inhalation Q4-6H PRN asthma 03/17/23 03/17/23 aerosol inhaler (Ventolin HFA) atorvastatin 40 mg tablet 40 mg PO ONCE PM 03/17/23 03/17/23 cholecalciferol (vitamin D3) 03/17/23 dorzolamide 22.3 mg-timolol 6.8 1 drp EYE-BOTH BID 03/17/23 03/17/23 mg/mL eye drops fremanezumab-vfrm 225 mg/1.5 mL 225 mg SUBCUT QMONTH 03/17/23 03/17/23 subcutaneous auto-injector (Ajovy) gabapentin 300 mg capsule 300 mg PO 3XD 03/17/23 03/17/23 hydrochlorothiazide 12.5 mg capsule 12.5 mg PO DAILY 03/17/23 03/17/23 insulin aspart U-100 100 unit/mL See Rx Instructions .Route .COMPLEX 03/17/23 03/17/23 (3 mL) subcutaneous pen (Novolog FlexPen U-100 Insulin aspart) insulin glargine 100 unit/mL (3 See Rx Instructions .Route .COMPLEX 03/17/23 03/17/23 mL) subcutaneous pen (Basaglar KwikPen U-100 Insulin) lamotrigine 150 mg tablet 150 mg PO BID 03/17/23 03/17/23 latanoprost 0.005 % eye drops 1 drp EYE-BOTH ONCE PM 03/17/23 03/17/23 levothyroxine 100 mcg tablet 100 mcg PO DAILY 03/17/23 03/17/23 lisinopril 40 mg tablet 40 mg PO DAILY 03/17/23 03/17/23 lorazepam 0.5 mg tablet 0.5 mg PO BID PRN Sleep 03/17/23 03/17/23 norgestimate 0.25 mg-ethinyl 1 tab PO DAILY 03/17/23 03/17/23 estradiol 35 mcg tablet prazosin 5 mg capsule 5 mg PO ONCE PM 03/17/23 03/17/23 trazodone 100 mg tablet 100 mg PO ONCE PM 03/17/23 03/17/23 Previous Rx's Medication Instructions Recorded prednisone 20 mg tablet 20 mg PO DAILY 7 days #7 tabs 02/27/24 Allergies Allergy/AdvReac Type Severity Reaction Status Date / Time acetaminophen [From [place]] Allergy Verified 11/04/23 15:03 hydrocodone [From [place]] Allergy Verified 11/04/23 15:03 NSAIDS (Non-Steroidal Allergy Verified 11/04/23 15:03 Anti-Inflamma sumatriptan Allergy Verified 11/04/23 15:03 topiramate [From Topamax] Allergy Verified 11/04/23 15:03 [id number] Antimigraine Allergy Verified 11/04/23 15:03 Agents Review of Systems Review of Systems ROS Unobtainable: All systems reviewed & are unremarkable except as noted in HPI and below Patient History Social History Smoking Status: Never smoker Smoking Status: Never smoker Exam Initial Vital Signs Initial Vital Signs: Vital Signs Temperature 98.1 F 02/27/24 08:06 Pulse Rate 84 02/27/24 08:06 Respiratory Rate 22 02/27/24 08:06 Blood Pressure 162/101 H 02/27/24 08:06 Pulse Oximetry 96 02/27/24 08:06 Oxygen Delivery Method Room Air 02/27/24 08:06 Const General: cooperative, comfortable and No ill appearing HENMT Head: normal to inspection and normocephalic Resp Effort & Inspection: normal respiratory effort Auscultation: clear to auscultation bilaterally Cardio Rate: regular rate Rhythm: regular rhythm Skin General: no rashes or lesions noted Neuro General: patient alert, patient awake and moves all extremities Course Orders Ordered: ED Orders 02/27/24 09:03 XR chest 1V Stat Discontinued Medications Acetaminophen (Acetaminophen 325 Mg Tablet) 650 mg PO NOW ONE Stop: 02/27/24 10:16 Albuterol (Albuterol 2.5 Mg/3 Ml Neb (Adult)) 5 mg INH NOW ONE Stop: 02/27/24 08:45 Last Admin: 02/27/24 08:58 Dose: 5 mg Documented By: MIRNA Vital Signs Vital signs: Vital Signs - 8 hr 02/27/24 08:06 02/27/24 08:58 02/27/24 09:00 Temperature 98.1 F Pulse Rate 84 Respiratory Rate 22 12 Blood Pressure 162/101 H 147/84 H Pulse Oximetry 96 99 Oxygen Delivery Method Room Air Room Air 02/27/24 09:00 02/27/24 09:30 02/27/24 09:30 Temperature Pulse Rate 66 94 H Respiratory Rate Blood Pressure 146/66 H Pulse Oximetry 99 95 Oxygen Delivery Method 02/27/24 10:00 02/27/24 10:00 Temperature Pulse Rate 99 H Respiratory Rate Blood Pressure 152/72 H Pulse Oximetry 94 Oxygen Delivery Method Medical Decision Making Imaging Data Chest x-ray: Radiologist's Impression: PROCEDURE: XR CHEST 1V INDICATIONS: eval for PNA TECHNIQUE: One view of the chest was acquired. COMPARISON: None. FINDINGS: Surgical changes and devices: None. Lungs and pleura: Low lung volumes. No dense airspace disease or pleural effusions. Mediastinum: Normal heart size Bones and chest wall: Degenerative changes IMPRESSION: No acute radiographic abnormality on this single view study with low lung volumes. MDM Narrative Medical decision making narrative: Chest x-ray shows no signs of pneumonia. She was afebrile. Lungs are clear however at the time of my evaluation she would already received a breathing treatment. There was no indication for antibiotics. I do think that she would benefit from short course of steroids given her history of asthma. I did discuss this with her. We discussed return precautions and follow-up instructions. She expressed understanding and agreement. Discharge Plan Departure Patient Disposition: Home Clinical Impression: Bronchitis, Asthma Instructions: Cough (Alternative Therapy), Acute Bronchitis Activity Restrictions/Additional Instructions: Continue to take all of your medications as directed. I do recommend you take the steroids like we discussed. Be sure that you were checking her blood sugars closely. Contact your primary doctor for a follow-up. Return to the emergency department for new or worsening symptoms. Prescriptions: New prednisone 20 mg tablet 20 mg PO DAILY 7 Days Qty: 7 0RF No Action latanoprost 0.005 % drops 1 drp EYE-BOTH ONCE PM atorvastatin 40 mg tablet 40 mg PO ONCE PM lamotrigine 150 mg tablet 150 mg PO BID norgestimate-ethinyl estradiol 0.25-35 mg-mcg tablet 1 tab PO DAILY levothyroxine 100 mcg tablet 100 mcg PO DAILY prazosin 5 mg capsule 5 mg PO ONCE PM lorazepam 0.5 mg tablet 0.5 mg PO BID PRN (Reason: Sleep) trazodone 100 mg tablet 100 mg PO ONCE PM hydrochlorothiazide 12.5 mg Capsule 12.5 mg PO DAILY gabapentin 300 mg capsule 300 mg PO 3XD dorzolamide-timolol 22.3-6.8 mg/mL drops 1 drp EYE-BOTH BID acyclovir 200 mg capsule 400 mg PO BID albuterol sulfate [Ventolin HFA] 90 mcg/actuation Hfa Aerosol Inhaler 2 puff INHALATION Q4-6H PRN (Reason: asthma) lisinopril 40 mg tablet 40 mg PO DAILY insulin aspart U-100 [Novolog FlexPen U-100 Insulin] 100 unit/mL (3 mL) insulin pen See Rx Instructions .ROUTE .COMPLEX Patient Comments: inject subcutaneously as directed PER SLIDING SCALE 100-150: 8 UN... (REFER TO PRESCRIPTION NOTES). Rx Instructions: inject subcutaneously as directed PER SLIDING SCALE 100-150: 8 UN... (REFER TO PRESCRIPTION NOTES). Instructions not finished in computer. insulin glargine [Basaglar KwikPen U-100 Insulin] 100 unit/mL (3 mL) Insulin Pen See Rx Instructions .ROUTE .COMPLEX Rx Instructions: 10 units AM 22 units PM Ajovy Autoinjector 225 mg/1.5 mL Auto-Injector 225 mg SUBCUT QMONTH cholecalciferol (vitamin D3) Referrals: Teressa Campos PA-C [Primary Care Provider] - Stand Alone Forms: Patient Portal/API/Survey
[2024-02-27] MEDS: ACETAMINOPHEN 325 MG TABLET 650 MG PO (10:33)
== END 2024-02-27 10:38 | disposition home or self-care (01) ==
PROVIDERS: Emergency Provider Emergency Medicine; PCP Physician Assistant
DX: J45.909 Unspecified asthma, uncomplicated (principal)
CPT/HCPCS: 71045; 94640; 99283; J7613

== ENCOUNTER 2024-03-15 12:05 | Emergency (ER) | payer OTHER, SELFPAY ==
[2024-03-15 12:08] VITALS: BP 158/91; PULSE 84; RESP 18; TEMP 36.6; O2SAT 97; BMI 34.3
--- NOTE | 2024-03-15 12:21 | EKG_ITS ---
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
[2024-03-15] MEDS: BENZONATATE 100 MG CAPSULE 200 MG PO (13:18)
--- NOTE | 2024-03-15 13:24 | ED.CHESTPAIN ---
HPI - Chest Pain <Brina Solis PA-C - Last Filed: 03/15/24 16:37> General Chief Complaint: Chest Pain Stated Complaint: chest px when breathes Time Seen by Provider: 03/15/24 12:54 Source: patient Mode of arrival: Ambulatory Limitations: no limitations History of Present Illness HPI narrative: 43-year-old female with past medical history insulin-dependent diabetes, hypertension, legally blind, asthma, migraines, stroke presents to the ED with 2 days of worsening cough, pain with inspiration. Patient states that she was exposed to her stepchildren who tested positive for flu and suspects that she might have contracted the same. Patient was seen in the ED on 02/27/2024 for an upper respiratory infection, discharged home after a nebulizer treatment and a prescription for steroids. Patient states that she improved from that URI, however the cough symptoms started again yesterday. Patient denies fever, chills, shortness of breath. Patient does endorse some nausea. No vomiting, abdominal pain, dysuria. Related Data Home Medications Medication Instructions Recorded Confirmed acyclovir 200 mg capsule 400 mg PO BID 03/17/23 03/17/23 albuterol sulfate 90 mcg/actuation 2 puff inhalation Q4-6H PRN asthma 03/17/23 03/17/23 aerosol inhaler (Ventolin HFA) atorvastatin 40 mg tablet 40 mg PO ONCE PM 03/17/23 03/17/23 cholecalciferol (vitamin D3) 03/17/23 dorzolamide 22.3 mg-timolol 6.8 1 drp EYE-BOTH BID 03/17/23 03/17/23 mg/mL eye drops fremanezumab-vfrm 225 mg/1.5 mL 225 mg SUBCUT QMONTH 03/17/23 03/17/23 subcutaneous auto-injector (Ajovy) gabapentin 300 mg capsule 300 mg PO 3XD 03/17/23 03/17/23 hydrochlorothiazide 12.5 mg capsule 12.5 mg PO DAILY 03/17/23 03/17/23 insulin aspart U-100 100 unit/mL See Rx Instructions .Route .COMPLEX 03/17/23 03/17/23 (3 mL) subcutaneous pen (Novolog FlexPen U-100 Insulin aspart) insulin glargine 100 unit/mL (3 See Rx Instructions .Route .COMPLEX 03/17/23 03/17/23 mL) subcutaneous pen (Basaglar KwikPen U-100 Insulin) lamotrigine 150 mg tablet 150 mg PO BID 03/17/23 03/17/23 latanoprost 0.005 % eye drops 1 drp EYE-BOTH ONCE PM 03/17/23 03/17/23 levothyroxine 100 mcg tablet 100 mcg PO DAILY 03/17/23 03/17/23 lisinopril 40 mg tablet 40 mg PO DAILY 03/17/23 03/17/23 lorazepam 0.5 mg tablet 0.5 mg PO BID PRN Sleep 03/17/23 03/17/23 norgestimate 0.25 mg-ethinyl 1 tab PO DAILY 03/17/23 03/17/23 estradiol 35 mcg tablet prazosin 5 mg capsule 5 mg PO ONCE PM 03/17/23 03/17/23 trazodone 100 mg tablet 100 mg PO ONCE PM 03/17/23 03/17/23 Previous Rx's Medication Instructions Recorded azithromycin 250 mg tablet See Rx Instructions PO .COMPLEX #6 03/15/24 (Zithromax Z-Jerrell) tabs benzonatate 200 mg capsule 200 mg PO TID PRN cough #30 caps 03/15/24 Allergies Allergy/AdvReac Type Severity Reaction Status Date / Time acetaminophen [From [place]] Allergy Verified 11/04/23 15:03 hydrocodone [From [place]] Allergy Verified 11/04/23 15:03 NSAIDS (Non-Steroidal Allergy Verified 11/04/23 15:03 Anti-Inflamma sumatriptan Allergy Verified 11/04/23 15:03 topiramate [From Topamax] Allergy Verified 11/04/23 15:03 [id number] Antimigraine Allergy Verified 11/04/23 15:03 Agents Review of Systems <Brina Solis PA-C - Last Filed: 03/15/24 16:37> Constitutional Constitutional: Denies chills, Denies fatigue, Denies fever(s), Denies frequent falls, Denies lethargy and Denies weakness Eyes Eyes: Denies change in vision, Denies eye discharge, Denies irritation and Denies loss of vision ENT Ears, Nose, Mouth, and Throat: Denies change in voice, Denies dizziness, Denies neck pain, Denies sore throat and Denies throat swelling Cardiovascular Cardiovascular: Reports chest pain, Denies irregular heart rhythm, Denies lightheadedness, Denies palpitations, Denies dyspnea, Denies dyspnea on exertion and Denies orthopnea Comments: Chest pain with inspiration Respiratory Respiratory: Reports cough, Denies dyspnea, Denies dyspnea on exertion and Denies wheezing Gastrointestinal Gastrointestinal: Denies abdominal pain, Denies change in bowel habits, Denies diarrhea, Denies nausea and Denies vomiting Musculoskeletal Musculoskeletal: Denies neck pain and Denies numbness Integumentary/Breasts Skin/Breast: Denies pruritus, Denies erythema, Denies rash and Denies wounds Neurologic Neurologic: Denies behavioral changes, Denies confusion, Denies dizziness, Denies frequent falls, Denies loss of vision, Denies numbness and Denies weakness Psychiatric Psychiatric: Denies anxiety, Denies behavioral changes, Denies confusion, Denies depression, Denies homicidal ideation and Denies suicidal ideation Endocrine Endocrine: Denies fatigue, Denies flushing and Denies palpitations Hematologic/Lymphatic Hematologic/Lymphatic: Denies easy bruising Allergic/Immunologic Allergic/Immunologic: Denies urticaria, Denies throat swelling and Denies wheezing Patient History <Brina Solis PA-C - Last Filed: 03/15/24 16:37> Social History Smoking Status: Never smoker Smoking Status: Never smoker Exam <Brina Solis PA-C - Last Filed: 03/15/24 16:37> Narrative Exam Narrative: Const General:?cooperative, healthy appearing and comfortable [facility] Head:?normal to inspection Ears:?hearing grossly normal bilaterally Nose:?external nose normal Face and sinus:?normal facial exam and sinuses nontender Mouth:?oral mucosae normal Throat:?posterior oropharynx normal Eyes General:?appearance normal, both eyes and all related structures Neck Neck:?normal visual inspection and no lymphadenopathy noted Resp Effort & Inspection:?normal respiratory effort Auscultation:?clear to auscultation bilaterally Cardio Rate:?regular rate Rhythm:?regular rhythm Neuro General:?patient alert, patient awake and patient oriented x3 Initial Vital Signs Initial Vital Signs: Vital Signs Temperature 97.8 F 03/15/24 12:08 Pulse Rate 84 03/15/24 12:08 Respiratory Rate 18 03/15/24 12:08 Blood Pressure 158/91 H 03/15/24 12:08 Pulse Oximetry 97 03/15/24 12:08 Oxygen Delivery Method Room Air 03/15/24 12:08 <Claus Bills MD - Last Filed: 03/16/24 07:29> Initial Vital Signs Initial Vital Signs: Vital Signs Temperature 97.8 F 03/15/24 12:08 Pulse Rate 84 03/15/24 12:08 Respiratory Rate 18 03/15/24 12:08 Blood Pressure 158/91 H 03/15/24 12:08 Pulse Oximetry 97 03/15/24 12:08 Oxygen Delivery Method Room Air 03/15/24 12:08 Course <Brina Solis PA-C - Last Filed: 03/15/24 16:37> Orders Ordered: Discontinued Medications Benzonatate (Benzonatate 100 Mg Capsule) 200 mg PO NOW ONE Stop: 03/15/24 13:08 Last Admin: 03/15/24 13:18 Dose: 200 mg Documented By: MPO Vital Signs Vital signs: Vital Signs - 8 hr 03/15/24 12:08 Temperature 97.8 F Pulse Rate 84 Respiratory Rate 18 Blood Pressure 158/91 H Pulse Oximetry 97 Oxygen Delivery Method Room Air <Claus Bills MD - Last Filed: 03/16/24 07:29> Orders Ordered: Discontinued Medications Benzonatate (Benzonatate 100 Mg Capsule) 200 mg PO NOW ONE Stop: 03/15/24 13:08 Last Admin: 03/15/24 13:18 Dose: 200 mg Documented By: MPO Vital Signs Vital signs: Vital Signs - 8 hr 03/15/24 12:08 Temperature 97.8 F Pulse Rate 84 Respiratory Rate 18 Blood Pressure 158/91 H Pulse Oximetry 97 Oxygen Delivery Method Room Air MDM - Chest Pain <Brina Solis PA-C - Last Filed: 03/15/24 16:37> Lab Data Labs: Lab Results 03/15/24 Range/Units 13:08 SARS-CoV-2 (PCR) Negative (Negative) Influenza A (RT-PCR) Flu a positive H (NEGATIVE) Influenza B (RT-PCR) Flu b negative (NEGATIVE) RSV (PCR) Negative (Negative) MDM Narrative Medical decision making narrative: 43-year-old female with past medical history insulin-dependent diabetes, hypertension, legally blind, asthma, migraines, stroke presents to the ED with 2 days of worsening cough, pain with inspiration. Concern for influenza a versus RSV versus other URI versus other. Will consider PE, however history is more skewed towards URI. Will obtain a respiratory swab. Will give Tessalon Perles for cough. Will reassess. Respiratory panel was positive for influenza A. Chest x-ray was obtained to rule out pneumonia since she patient had some chest discomfort. Chest x-ray shows mild prominence of the interstitial markings, may represent atypical or viral infection. Will treat with antibiotics. Prescribed Tessalon Perles for cough. ED return precautions were discussed with patient. Patient verbalized understanding. Medical records reviewed: Yes <Claus Bills MD - Last Filed: 03/16/24 07:29> Lab Data Labs: Lab Results 03/15/24 Range/Units 13:08 SARS-CoV-2 (PCR) Negative (Negative) Influenza A (RT-PCR) Flu a positive H (NEGATIVE) Influenza B (RT-PCR) Flu b negative (NEGATIVE) RSV (PCR) Negative (Negative) Discharge Plan Departure Patient Disposition: Home Clinical Impression: Influenza A Instructions: DI for Influenza -- Adult Activity Restrictions/Additional Instructions: You were evaluated in the ED today for a cough. You tested positive for influenza a. Your chest x-ray shows possible pneumonia, you are being prescribed antibiotics. You are also being prescribed Tessalon Perles for cough. You may continue to use your albuterol inhaler as needed if you are wheezing. Please follow-up with your PCP as soon as possible. Return to the ED if you have worsening symptoms, chest pain, shortness of breath. Prescriptions: New benzonatate 200 mg capsule 200 mg PO TID PRN (Reason: cough) Qty: 30 0RF azithromycin [Zithromax Z-Jerrell] 250 mg tablet See Rx Instructions .ROUTE .COMPLEX Qty: 6 0RF Rx Instructions: For 250 mg dose pack: take 500 mg today (day 1), then 250 mg for 4 days (days 2-5) No Action latanoprost 0.005 % drops 1 drp EYE-BOTH ONCE PM atorvastatin 40 mg tablet 40 mg PO ONCE PM lamotrigine 150 mg tablet 150 mg PO BID norgestimate-ethinyl estradiol 0.25-35 mg-mcg tablet 1 tab PO DAILY levothyroxine 100 mcg tablet 100 mcg PO DAILY prazosin 5 mg capsule 5 mg PO ONCE PM lorazepam 0.5 mg tablet 0.5 mg PO BID PRN (Reason: Sleep) trazodone 100 mg tablet 100 mg PO ONCE PM hydrochlorothiazide 12.5 mg Capsule 12.5 mg PO DAILY gabapentin 300 mg capsule 300 mg PO 3XD dorzolamide-timolol 22.3-6.8 mg/mL drops 1 drp EYE-BOTH BID acyclovir 200 mg capsule 400 mg PO BID albuterol sulfate [Ventolin HFA] 90 mcg/actuation Hfa Aerosol Inhaler 2 puff INHALATION Q4-6H PRN (Reason: asthma) lisinopril 40 mg tablet 40 mg PO DAILY insulin aspart U-100 [Novolog FlexPen U-100 Insulin] 100 unit/mL (3 mL) insulin pen See Rx Instructions .ROUTE .COMPLEX Patient Comments: inject subcutaneously as directed PER SLIDING SCALE 100-150: 8 UN... (REFER TO PRESCRIPTION NOTES). Rx Instructions: inject subcutaneously as directed PER SLIDING SCALE 100-150: 8 UN... (REFER TO PRESCRIPTION NOTES). Instructions not finished in computer. insulin glargine [Basaglar KwikPen U-100 Insulin] 100 unit/mL (3 mL) Insulin Pen See Rx Instructions .ROUTE .COMPLEX Rx Instructions: 10 units AM 22 units PM Ajovy Autoinjector 225 mg/1.5 mL Auto-Injector 225 mg SUBCUT QMONTH cholecalciferol (vitamin D3) Referrals: Teressa Campos PA-C [Primary Care Provider] - Stand Alone Forms: Patient Portal/API/Survey ED Sign-out <Claus Bills MD - Last Filed: 03/16/24 07:29> Cosign ED Attending Edgar Attestation: I was immediately available in the department for consultation. ?This documentation has been reviewed and I agree with assessment and plan. Supervised by Claus Bills MD
--- NOTE | 2024-03-15 14:38 | PC.NURSE ---
Pt states that she was with her step children this weekend and several of them had the flu. Pt believes that she caught the flu from one of her kids and s here because she is having some very mild intermittent sob and cp when she breathes in. States that she took a week of prednisone taper due to being dx with bronchitis. Low barking cough observed. Pt has hx of stroke.
[2024-03-15 14:52] LABS: Influenza A - CEPHEID Flu A POSITIVE (NEGATIVE); Influenza B - CEPHEID Flu B NEGATIVE (NEGATIVE); Respiratory Syncytial Virus Negative (Negative)
[2024-03-15 14:54] LABS: COVID-19 CEPHEID 4-PLEX PCR Negative (Negative)
--- NOTE | 2024-03-15 15:03 | DI.RAD.S_ITS ---
PROCEDURE: XR CHEST 2V INDICATIONS: cough TECHNIQUE: 2 views of the chest were acquired. COMPARISON: [facility], , XR CHEST 1V, 02/27/2024, 9:02. FINDINGS: Surgical changes and devices: None. Lungs and pleura: Mild prominence of the interstitial markings. No pleural effusions or pneumothorax. Mediastinum: Mediastinal contours are normal. Heart size is normal. Bones and chest wall: No suspicious bony abnormalities. Soft tissues appear unremarkable. IMPRESSION: Mild prominence of the interstitial markings, may represent atypical or viral infection. Dictated by: Vincent Archibald M.D. on 03/15/2024 at 16:17 Approved by: Vincent Archibald M.D. on 03/15/2024 at 16:17
[2024-03-15 16:49] VITALS: BP 164/88; PULSE 89; RESP 16; TEMP 37; O2SAT 98
== END 2024-03-15 16:50 | disposition home or self-care (01) ==
PROVIDERS: Emergency Provider Student in an Organized Health Care Education/Training Program; PCP Physician Assistant
DX: J10.1 Influenza due to other identified influenza virus with other respiratory manifestations (principal)
CPT/HCPCS: 0241U; 71046; 93005; 99283; 99284

== ENCOUNTER 2024-03-30 19:32 | Emergency (ER) | payer OTHER, SELFPAY ==
[2024-03-30 19:37] VITALS: BP 101/73; PULSE 103; RESP 18; TEMP 37.1; O2SAT 98; BMI 36.0
--- NOTE | 2024-03-30 19:52 | DI.CT.S_ITS ---
PROCEDURE: CT SOFT TISSUE NECK W CON INDICATIONS: Foreign body sensation to the throat TECHNIQUE: After the administration of intravenous contrast, 3.0 mm axial sections acquired from the sella to the aortic arch. Additional oblique axial 3.0 mm sections acquired through the pharynx. 3 mm thick coronal and sagittal reformats were generated. For radiation dose reduction, the following was used: automated exposure control. COMPARISON: None. FINDINGS: Image quality: Excellent. Lymph nodes: No enlarged lymph nodes seen throughout the neck. Vessels: Visualized vasculature appears patent. Neck spaces: The oropharynx, nasopharynx, and pharynx demonstrate no mucosal lesions. 3 mm calcification is noted in left oral pharyngeal soft tissue at the level of epiglottis. The vocal cords, false vocal cords, pyriform sinuses, epiglottis, vallecula, and tongue base all appear normal. Extramucosal spaces appear unremarkable. Glands: The parotid and submandibular glands appear normal. Thyroid gland is within normal limits. Miscellaneous: Visualized brain and orbits appear normal. Lung apices appear clear. Superficial soft tissues appear normal. Bones: No suspicious bony lesions. Visualized sinuses and mastoids appear unremarkable. IMPRESSION: 1. Nonspecific tiny 3 mm calcification in left oral pharyngeal soft tissue at the level of epiglottis. 2. No discrete soft tissue mass or abscess collection. No neck soft tissue lymphadenopathy. Airway is patent. Dictated by: Jerrell Macdonald M.D. on 03/30/2024 at 21:29 Approved by: Jerrell Macdonald M.D. on 03/30/2024 at 21:35
[2024-03-30 20:21] LABS: Add Manual Diff / Slide Review NO; Basophils Absolute Auto 0 /uL (0-100); Basophils Percent Auto 0.5 % (0-2); Eosinophils Absolute Auto 100 /uL (0-450); Eosinophils Percent Auto 0.8 % (2-4); Hemoglobin 14.7 g/dL (12.0-16.0); Lymphocytes Absolute Auto 3200 /uL (1100-4500); Lymphocytes Percent Auto 34.4 % (25-40); Mean Corpuscular HGB Conc 34.2 % (30-36); Mean Corpuscular Hemoglobin 28.5 PG (26-34); Mean Corpuscular Volume 83.3 fL (80-100); Monocytes Absolute Auto 700 /uL (0-900); Monocytes Percent Auto 7.3 % (3-14); Neutrophils Absolute Auto 5200 /uL (1500-7000); Platelet Count 482 X10^3/uL (150-400); Red Blood Cell Count 5.16 X10^6/uL (4.0-5.2); Red Cell Distribution Width 13.3 % (11.6-14.8); White Blood Cell Count 9.2 X10^3/uL (4.5-11.0)
[2024-03-30 20:56] LABS: Pregnancy Test Serum,Qual Negative (Negative)
[2024-03-30 21:17] LABS: BUN Creatinine Ratio 13.3 (6-22); Blood Urea Nitrogen 12 mg/dL (7-17); Calcium 9.2 mg/dL (8.4-10.2); Carbon Dioxide 17 mmol/L (22-32); Chloride 106 mmol/L (98-107); Estimated Glomerular Filt Rate > 60 mL/min (>60); Glucose 143 mg/dL (70-100); HEMOLYSIS < 15 (0-50); Potassium 3.5 mmol/L (3.4-5.1); Sodium 134 mmol/L (137-145)
--- NOTE | 2024-03-30 22:04 | ED.SKABFB ---
HPI - Skin/Abscess/Foreign Bdy General Chief complaint: Skin/Abscess/Foreign Body Stated complaint: feels like something is stuck in throat Time Seen by Provider: 03/30/24 19:51 Source: patient Mode of arrival: Ambulatory Limitations: physical limitation History of Present Illness HPI narrative: 43-year-old female without any significant past medical history comes into the ED from home for evaluation globus sensation to her throat. States that when she woke up on Thursday felt like something was ?stuck in her throat, states that she feels like it has in a pressure in her neck but denies any actual chest pain. States that she has not sure of any thing that could have been ?stuck given the fact that she ate some spaghetti the night before. Since then she has been able to tolerate p.o. liquids and solids but states that she feels like she has been having some mild decreased appetite secondary to this sensation. Patient states that she is blind at baseline but is able to see light and dark. Otherwise patient not complaining of any other symptoms at this time. Related Data Home Medications Medication Instructions Recorded Confirmed acyclovir 200 mg capsule 400 mg PO BID 03/17/23 03/17/23 albuterol sulfate 90 mcg/actuation 2 puff inhalation Q4-6H PRN asthma 03/17/23 03/17/23 aerosol inhaler (Ventolin HFA) atorvastatin 40 mg tablet 40 mg PO ONCE PM 03/17/23 03/17/23 cholecalciferol (vitamin D3) 03/17/23 dorzolamide 22.3 mg-timolol 6.8 1 drp EYE-BOTH BID 03/17/23 03/17/23 mg/mL eye drops fremanezumab-vfrm 225 mg/1.5 mL 225 mg SUBCUT QMONTH 03/17/23 03/17/23 subcutaneous auto-injector (Ajovy) gabapentin 300 mg capsule 300 mg PO 3XD 03/17/23 03/17/23 hydrochlorothiazide 12.5 mg capsule 12.5 mg PO DAILY 03/17/23 03/17/23 insulin aspart U-100 100 unit/mL See Rx Instructions .Route .COMPLEX 03/17/23 03/17/23 (3 mL) subcutaneous pen (Novolog FlexPen U-100 Insulin aspart) insulin glargine 100 unit/mL (3 See Rx Instructions .Route .COMPLEX 03/17/23 03/17/23 mL) subcutaneous pen (Basaglar KwikPen U-100 Insulin) lamotrigine 150 mg tablet 150 mg PO BID 03/17/23 03/17/23 latanoprost 0.005 % eye drops 1 drp EYE-BOTH ONCE PM 03/17/23 03/17/23 levothyroxine 100 mcg tablet 100 mcg PO DAILY 03/17/23 03/17/23 lisinopril 40 mg tablet 40 mg PO DAILY 03/17/23 03/17/23 lorazepam 0.5 mg tablet 0.5 mg PO BID PRN Sleep 03/17/23 03/17/23 norgestimate 0.25 mg-ethinyl 1 tab PO DAILY 03/17/23 03/17/23 estradiol 35 mcg tablet prazosin 5 mg capsule 5 mg PO ONCE PM 03/17/23 03/17/23 trazodone 100 mg tablet 100 mg PO ONCE PM 03/17/23 03/17/23 Previous Rx's Medication Instructions Recorded azithromycin 250 mg tablet See Rx Instructions PO .COMPLEX #6 03/15/24 (Zithromax Z-Jerrell) tabs benzonatate 200 mg capsule 200 mg PO TID PRN cough #30 caps 03/15/24 famotidine 20 mg tablet (Pepcid) 20 mg PO DAILY 1 month #30 tabs 03/30/24 Allergies Allergy/AdvReac Type Severity Reaction Status Date / Time acetaminophen [From [place]] Allergy Verified 11/04/23 15:03 hydrocodone [From [place]] Allergy Verified 11/04/23 15:03 NSAIDS (Non-Steroidal Allergy Verified 11/04/23 15:03 Anti-Inflamma sumatriptan Allergy Verified 11/04/23 15:03 topiramate [From Topamax] Allergy Verified 11/04/23 15:03 [id number] Antimigraine Allergy Verified 11/04/23 15:03 Agents Review of Systems Review of Systems Narrative: General: Cooperative, comfortable, well-developed, not in acute distress HEENT: Normocephalic, atraumatic, PERRLA, normal sclera, eyelids normal, Neck: Globus sensation in throat, Active full range of motion, atraumatic Chest: Normal to inspection, negative crepitus, no overlying erythema ecchymosis Respiratory: Normal respiratory effort, not in acute respiratory distress, clear to auscultation bilaterally negative cough, wheeze, tachypnea, rhonchi, rales Cardiology: Regular rate rhythm negative gallop, murmur, rubs GI/: Normal to inspection, soft, nonrigid, no tenderness to palpation, exam deferred MSK: Full range of active range of motion of all 4 extremities, atraumatic Skin: No rashes lesions noted Neuro: Alert awake oriented x3, moves all 4 extremities spontaneously, cranial nerves intact, able to answer all questions appropriately follows commands appropriately Psych: Cooperative, negative suicidal or homicidal ideations Patient History Social History Smoking Status: Never smoker Smoking Status: Never smoker Exam Narrative Exam Narrative: General: Cooperative, comfortable, well-developed, not in acute distress HEENT: Normocephalic, atraumatic, PERRLA, normal sclera, eyelids normal, Neck: Active full range of motion, atraumatic, posterior oropharynx clear without any signs of obstruction, uvula midline, speaking full sentences protecting airway no voice changes no stridor no trismus Chest: Normal to inspection, negative crepitus, no overlying erythema ecchymosis Respiratory: Normal respiratory effort, not in acute respiratory distress, clear to auscultation bilaterally negative cough, wheeze, tachypnea, rhonchi, rales Cardiology: Regular rate rhythm negative gallop, murmur, rubs GI/: Normal to inspection, soft, nonrigid, no tenderness to palpation, exam deferred MSK: Full range of active range of motion of all 4 extremities, atraumatic Skin: No rashes lesions noted Neuro: Alert awake oriented x3, moves all 4 extremities spontaneously, cranial nerves intact, able to answer all questions appropriately follows commands appropriately Psych: Cooperative, negative suicidal or homicidal ideations Initial Vital Signs Initial Vital Signs: Vital Signs Temperature 98.8 F 03/30/24 19:37 Pulse Rate 103 H 03/30/24 19:37 Respiratory Rate 18 03/30/24 19:37 Blood Pressure 101/73 03/30/24 19:37 Pulse Oximetry 98 03/30/24 19:37 Oxygen Delivery Method Room Air 03/30/24 19:37 Course Orders Ordered: ED Orders 03/30/24 19:52 CT soft tissue neck w con Stat 03/30/24 20:10 BMP [Basic Metabolic Panel] Stat CBC Auto Diff [Complete Blood Count AUTO DIFF] Stat Test Serum,Qual Stat Vital Signs Vital signs: Vital Signs - 8 hr 03/30/24 19:37 Temperature 98.8 F Pulse Rate 103 H Respiratory Rate 18 Blood Pressure 101/73 Pulse Oximetry 98 Oxygen Delivery Method Room Air MDM - Skin/Abscess/Foreign Bdy Differential Diagnosis Differential diagnosis: Likely other (Globus sensation, electrolyte abnormality, food bolus,) Lab Data 03/30/24 20:10 03/30/24 20:10 Labs: Lab Results 03/30/24 Range/Units 20:10 WBC 9.2 (4.5-11.0) X10^3/uL RBC 5.16 (4.0-5.2) X10^6/uL Hgb 14.7 (12.0-16.0) g/dL Hct 43.0 (36-46) % MCV 83.3 (80-100) fL MCH 28.5 (26-34) PG MCHC 34.2 (30-36) % RDW 13.3 (11.6-14.8) % Plt Count 482 H (150-400) X10^3/uL Neut % (Auto) 57.0 (50-75) % Lymph % (Auto) 34.4 (25-40) % [place] % (Auto) 7.3 (3-14) % Eos % (Auto) 0.8 L (2-4) % Baso % (Auto) 0.5 (0-2) % Neut # (Auto) 5200 (6491-7868) /uL Lymph # (Auto) 3200 (6867-9448) /uL [place] # (Auto) 700 (0-900) /uL Eos # (Auto) 100 (0-450) /uL Baso # (Auto) 0 (0-100) /uL Sodium 134 L (137-145) mmol/L Potassium 3.5 (3.4-5.1) mmol/L Chloride 106 (98-107) mmol/L Carbon Dioxide 17 L (22-32) mmol/L BUN 12 (7-17) mg/dL Creatinine 0.90 (0.52-1.04) mg/dL Estimated GFR > 60 (>60) mL/min BUN/Creatinine Ratio 13.3 (6-22) Glucose 143 H (70-100) mg/dL Calcium 9.2 (8.4-10.2) mg/dL Serum , Qual Negative (Negative) Imaging Data CT soft tissue neck: Radiologist's Impression: [address] [address] [address] Scan Report Signed Patient: Stephanie Dorsey MR#: [id number] : 1980 Acct:[id number] Age/Sex: 43 / F Date of Service: 03/30/24 Loc: ED Accession Number: [id number] Procedure: CT soft tissue neck w con Ordering Provider: Yinka Castillo D.O. PROCEDURE: CT SOFT TISSUE NECK W CON INDICATIONS: Foreign body sensation to the throat TECHNIQUE: After the administration of intravenous contrast, 3.0 mm axial sections acquired from the sella to the aortic arch. Additional oblique axial 3.0 mm sections acquired through the pharynx. 3 mm thick coronal and sagittal reformats were generated. For radiation dose reduction, the following was used: automated exposure control. COMPARISON: None. FINDINGS: Image quality: Excellent. Lymph nodes: No enlarged lymph nodes seen throughout the neck. Vessels: Visualized vasculature appears patent. Neck spaces: The oropharynx, nasopharynx, and pharynx demonstrate no mucosal lesions. 3 mm calcification is noted in left oral pharyngeal soft tissue at the level of epiglottis. The vocal cords, false vocal cords, pyriform sinuses, epiglottis, vallecula, and tongue base all appear normal. Extramucosal spaces appear unremarkable. Glands: The parotid and submandibular glands appear normal. Thyroid gland is within normal limits. Miscellaneous: Visualized brain and orbits appear normal. Lung apices appear clear. Superficial soft tissues appear normal. Bones: No suspicious bony lesions. Visualized sinuses and mastoids appear unremarkable. IMPRESSION: 1. Nonspecific tiny 3 mm calcification in left oral pharyngeal soft tissue at the level of epiglottis. 2. No discrete soft tissue mass or abscess collection. No neck soft tissue lymphadenopathy. Airway is patent. MDM Narrative Medical decision making narrative: 43-year-old female history of blindness comes into the ED for evaluation of globus/foreign body sensation in throat started proximally 1 week ago. Patient had lab work imaging performed here. Patient's CT soft tissue neck showing a nonspecific tiny 3 mm calcification in the left oropharyngeal soft tissue at the level of the epiglottis, however this is unlikely the cause of her symptoms. Patient on exam speaking full sentences protecting airway no voice changes no stridor no trismus tolerating secretions. There is no discrete soft tissue mass or abscess collection within the neck airways patent according to CT scan. Patient possibly with esophageal dysmotility or pill esophagitis patient is speaking in full sentences protecting airway no urgent or emergent reasons for EGD at this time patient was given strict return precautions informed to follow up with GI, she verbalized understanding of this and agrees to being discharged home with outpatient follow up Discharge Plan Departure Patient Disposition: Home Clinical Impression: Globus sensation Activity Restrictions/Additional Instructions: Please follow up with the GI for swallow study and possible EGD, as well as primary care Please read the discharge instructions sheet carefully and bring all papers to all doctor follow-up visits, as it may contain information that your doctor may want to see. Disease processes change and evolve, if your symptoms worsen or if you develop any new symptoms that are concerning to you please return for evaluation. Your evaluation today does not show any evidence of any life-threatening/serious illnesses requiring admission to the hospital or surgery. Please follow-up with your doctor for re-evaluation in approximately 1 day. Seek immediate medical attention for any worrisome symptoms. *If you do not have a primary care provider please contact the [facility] Resource line at [phone]. They will ask some questions about your medical history and help get you set up with a doctor in the community. Prescriptions: New famotidine [Pepcid] 20 mg tablet 20 mg PO DAILY 30 Days Qty: 30 0RF No Action latanoprost 0.005 % drops 1 drp EYE-BOTH ONCE PM atorvastatin 40 mg tablet 40 mg PO ONCE PM lamotrigine 150 mg tablet 150 mg PO BID norgestimate-ethinyl estradiol 0.25-35 mg-mcg tablet 1 tab PO DAILY levothyroxine 100 mcg tablet 100 mcg PO DAILY prazosin 5 mg capsule 5 mg PO ONCE PM lorazepam 0.5 mg tablet 0.5 mg PO BID PRN (Reason: Sleep) trazodone 100 mg tablet 100 mg PO ONCE PM hydrochlorothiazide 12.5 mg Capsule 12.5 mg PO DAILY gabapentin 300 mg capsule 300 mg PO 3XD dorzolamide-timolol 22.3-6.8 mg/mL drops 1 drp EYE-BOTH BID acyclovir 200 mg capsule 400 mg PO BID albuterol sulfate [Ventolin HFA] 90 mcg/actuation Hfa Aerosol Inhaler 2 puff INHALATION Q4-6H PRN (Reason: asthma) lisinopril 40 mg tablet 40 mg PO DAILY insulin aspart U-100 [Novolog FlexPen U-100 Insulin] 100 unit/mL (3 mL) insulin pen See Rx Instructions .ROUTE .COMPLEX Patient Comments: inject subcutaneously as directed PER SLIDING SCALE 100-150: 8 UN... (REFER TO PRESCRIPTION NOTES). Rx Instructions: inject subcutaneously as directed PER SLIDING SCALE 100-150: 8 UN... (REFER TO PRESCRIPTION NOTES). Instructions not finished in computer. insulin glargine [Basaglar KwikPen U-100 Insulin] 100 unit/mL (3 mL) Insulin Pen See Rx Instructions .ROUTE .COMPLEX Rx Instructions: 10 units AM 22 units PM Ajovy Autoinjector 225 mg/1.5 mL Auto-Injector 225 mg SUBCUT QMONTH cholecalciferol (vitamin D3) benzonatate 200 mg capsule 200 mg PO TID PRN (Reason: cough) Qty: 30 0RF azithromycin [Zithromax Z-Jerrell] 250 mg tablet See Rx Instructions .ROUTE .COMPLEX Qty: 6 0RF Rx Instructions: For 250 mg dose pack: take 500 mg today (day 1), then 250 mg for 4 days (days 2-5) Referrals: Teressa Campos PA-C [Primary Care Provider] - Niranjan Kellogg MD [Physician] - Stand Alone Forms: Patient Portal/API/Survey
[2024-03-30] MEDS: FAMOTIDINE 20 MG/2 ML VIAL IV (22:47)
--- NOTE | 2024-03-30 22:57 | PC.NURSE ---
Pt states that on Thursday03/27/24 she choked on some food and feels like it is still in her throat.
[2024-03-30 22:58] VITALS: BP 131/82; PULSE 83; RESP 15; O2SAT 99
== END 2024-03-30 22:58 | disposition home or self-care (01) ==
PROVIDERS: Emergency Provider Student in an Organized Health Care Education/Training Program; PCP Physician Assistant
DX: R09.A2 Foreign body sensation, throat (principal); F45.8 Other somatoform disorders
CPT/HCPCS: 36415; 70491; 80048; 84703; 85025; 96374; 99284; 99285; Q9967

== ENCOUNTER 2024-04-18 10:19 | Emergency (ER) | payer OTHER, SELFPAY ==
--- NOTE | 2024-04-18 10:26 | DI.RAD.S_ITS ---
PROCEDURE: XR CHEST 1V INDICATIONS: fall, cva vs trauma TECHNIQUE: One view of the chest was acquired. COMPARISON: [facility], CR, XR CHEST 2V, 03/15/2024, 15:09. FINDINGS: Surgical changes and devices: None. Lungs and pleura: Mild pulmonary vascular congestion. Linear scarring/atelectasis in bilateral lower lung hooks are seen. No definite focal infiltrate. No pleural effusions or pneumothorax. Mediastinum: Mediastinal contours appear normal. Heart size is normal. Bones and chest wall: No suspicious bony lesions. Overlying soft tissues appear unremarkable. IMPRESSION: Mild pulmonary vascular congestion and bibasilar linear scarring/atelectasis. No definite focal infiltrate. No pleural effusion or pneumothorax. Dictated by: Jerrell Macdonald M.D. on 04/18/2024 at 11:31 Approved by: Jerrell Macdonald M.D. on 04/18/2024 at 11:32
--- NOTE | 2024-04-18 10:26 | DI.CT.S_ITS ---
PROCEDURE: CT ANGIO HEAD AND NECK INDICATIONS: trauma vs cva, hit head, L weakness, hx tia TECHNIQUE: After the administration of intravenous contrast, 1 mm thick sections acquired from the aortic arch through the [place]. 3-dimensional vlojrqz-npkvynmul-sdlzuxdgcn (MIP) and/or volume rendering reformats were acquired of the central intracranial vasculature and neck separately. For radiation dose reduction, the following was used: automated exposure control, adjustment of mA and/or kV according to patient size. COMPARISON: [facility], CT, CT STROKE, 04/18/2024, 10:31. [facility], CT, CT ANGIO HEAD AND NECK, 11/04/2023, 15:04. FINDINGS: Image quality: Diagnostic. BRAIN: CSF spaces: Ventricles are normal in size and shape. Basal cisterns are patent. No extra-axial fluid collections. Brain: No significant abnormality of the brain can be seen. Skull and face: Calvarium and facial bones appear intact, without suspicious lesions. Orbits appear normal. Left globe prosthesis. Sinuses: Sinuses and mastoids are clear. HEAD CT ANGIOGRAPHY: Anterior circulation: Intracranial internal carotid arteries are normal in size and flow. The flow within the paired anterior cerebral arteries is normal and symmetric. The flow within the middle cerebral arteries is normal and symmetric. The anterior communicating artery is seen. No aneurysms are seen. Posterior circulation: Visualized portions of the vertebral arteries demonstrate normal caliber, and join to form a normal appearing basilar artery. Flow within the posterior cerebral arteries is normal and symmetric. No aneurysms are seen. NECK CT ANGIOGRAPHY: Carotid system: The great vessels demonstrate a conventional anatomy as they arise from the aortic arch. The origins of the common carotid arteries appear patent. The common carotid arteries demonstrate normal caliber and courses. The bifurcation regions are both widely patent. The internal carotid arteries demonstrate normal calibers and courses. Posterior circulation: The origins of the vertebral arteries both appear widely patent. The more superior extracranial portions of both vertebral arteries also demonstrate normal courses and calibers. They join to form a normal appearing basilar artery. Soft tissues: Visualized neck soft tissues demonstrate no suspicious abnormalities. Bones: No suspicious bony lesions. Visualized cervical spine appears normally aligned. IMPRESSION: No significant intracranial arterial abnormality is seen. No significant abnormality is seen within the arteries of the neck. Any quantitative measurements of stenosis were performed using NASCET criteria. Dictated by: Donato Sandoval M.D. on 04/18/2024 at 11:29 Approved by: Donato Sandoval M.D. on 04/18/2024 at 11:32
--- NOTE | 2024-04-18 10:26 | DI.CT.S_ITS ---
PROCEDURE: CT STROKE INDICATIONS: trauma vs cva, hit head, L weakness, hx tia TECHNIQUE: Noncontrast 4.5 mm thick angled axial sections acquired from the foramen magnum to the vertex, with coronal reformats. For radiation dose reduction, the following was used: automated exposure control, adjustment of mA and/or kV according to patient size. COMPARISON: [facility], CT, CT ANGIO HEAD AND NECK, 11/04/2023, 15:04. [facility], CT, CT STROKE, 11/04/2023, 15:04. FINDINGS: Image quality: Diagnostic. CSF spaces: Basal cisterns are patent. No extra-axial fluid collections. Ventricles are normal in size and shape. Brain: No midline shift. No intracranial masses or hemorrhage. [place]-white matter interface is normal. Skull and face: Left globe prosthesis. Calvarium and visualized facial bones are intact, without suspicious lesions. Sinuses: Visualized sinuses and mastoids are clear. IMPRESSION: No acute intracranial pathology. Comment: Findings were discussed with Dr. Conroy on 04/18/2024 at 1048 hours This study fulfills neurological imaging criteria for inclusion or exclusion of acute stroke therapies based on available published neurological imaging guidelines. Dictated by: Donato Sandoval M.D. on 04/18/2024 at 10:46 Approved by: Donato Sandoval M.D. on 04/18/2024 at 10:48
--- NOTE | 2024-04-18 10:28 | ED_ITS ---
HPI - Trauma General Chief Complaint: Head Injury Stated Complaint: stroke Time Seen by Provider: 04/18/24 10:21 Source: patient, EMS, RN notes reviewed and old records reviewed Mode of arrival: EMS Limitations: no limitations History of Present Illness HPI narrative: 43-year-old female history of insulin-dependent diabetes, hypertension, legally blind, asthma, migraines, prior TIAs presents with complaint of fall hitting her head. Patient states she was dizzy this morning was going to step out of her RV fell down the steps and did hit her head. Describes a loss of consciousness, described as brief. Patient states her phone called her has been who then called 911 after her fall. Per patient and EMS while EN route started to feel weak they describe left-sided weakness patient states her speech has a little bit off. She does take an aspirin daily describes prior TIAs with similar symptoms. Denies any chest pain or shortness of breath, does describe neck pain. Had nausea but had Zofran EN route, no vomiting. No other GI or urinary symptoms reported. No incontinence. Patient states prior TIA was found to be provoked by triptans. Related Data Home Medications Medication Instructions Recorded Confirmed acyclovir 200 mg capsule 400 mg PO BID 03/17/23 03/17/23 albuterol sulfate 90 mcg/actuation 2 puff inhalation Q4-6H PRN asthma 03/17/23 03/17/23 aerosol inhaler (Ventolin HFA) atorvastatin 40 mg tablet 40 mg PO ONCE PM 03/17/23 03/17/23 cholecalciferol (vitamin D3) 03/17/23 dorzolamide 22.3 mg-timolol 6.8 1 drp EYE-BOTH BID 03/17/23 03/17/23 mg/mL eye drops [id number]-vfrm 225 mg/1.5 mL 225 mg SUBCUT QMONTH 03/17/23 03/17/23 subcutaneous auto-injector (Ajovy) gabapentin 300 mg capsule 300 mg PO 3XD 03/17/23 03/17/23 hydrochlorothiazide 12.5 mg capsule 12.5 mg PO DAILY 03/17/23 03/17/23 insulin aspart U-100 100 unit/mL See Rx Instructions .Route .COMPLEX 03/17/23 03/17/23 (3 mL) subcutaneous pen (Novolog FlexPen U-100 Insulin aspart) insulin glargine 100 unit/mL (3 See Rx Instructions .Route .COMPLEX 03/17/23 03/17/23 mL) subcutaneous pen (Basaglar KwikPen U-100 Insulin) lamotrigine 150 mg tablet 150 mg PO BID 03/17/23 03/17/23 latanoprost 0.005 % eye drops 1 drp EYE-BOTH ONCE PM 03/17/23 03/17/23 levothyroxine 100 mcg tablet 100 mcg PO DAILY 03/17/23 03/17/23 lisinopril 40 mg tablet 40 mg PO DAILY 03/17/23 03/17/23 lorazepam 0.5 mg tablet 0.5 mg PO BID PRN Sleep 03/17/23 03/17/23 norgestimate 0.25 mg-ethinyl 1 tab PO DAILY 03/17/23 03/17/23 estradiol 35 mcg tablet prazosin 5 mg capsule 5 mg PO ONCE PM 03/17/23 03/17/23 trazodone 100 mg tablet 100 mg PO ONCE PM 03/17/23 03/17/23 Previous Rx's Medication Instructions Recorded azithromycin 250 mg tablet See Rx Instructions PO .COMPLEX #6 03/15/24 (Zithromax Z-Jerrell) tabs benzonatate 200 mg capsule 200 mg PO TID PRN cough #30 caps 03/15/24 famotidine 20 mg tablet (Pepcid) 20 mg PO DAILY 1 month #30 tabs 03/30/24 Allergies Allergy/AdvReac Type Severity Reaction Status Date / Time acetaminophen [From [place]] Allergy Verified 11/04/23 15:03 hydrocodone [From [place]] Allergy Verified 11/04/23 15:03 NSAIDS (Non-Steroidal Allergy Verified 11/04/23 15:03 Anti-Inflamma sumatriptan Allergy Verified 11/04/23 15:03 topiramate [From Topamax] Allergy Verified 11/04/23 15:03 [id number] Antimigraine Allergy Verified 11/04/23 15:03 Agents Review of Systems Review of Systems ROS Unobtainable: All systems reviewed & are unremarkable except as noted in HPI and below Patient History Social History Smoking Status: Never smoker Smoking Status: Never smoker Exam Narrative Exam Narrative: GEN: C-collar prior to arrival. Patient appears in mild distress. HEAD: No evidence of trauma, no raccoon/Guerrero sign. NECK: Nontender, painless range of motion, trachea midline Positive for Nexus criteria, there is line tenderness, distracting injury, no altered mental status, + neuro deficit, no recent EtOH. EYES: PERRLA, EOMI ENT: External inspection normal, trachea is midline, TM's are normal no hemotypanum, Nares are clear, no septal hematoma, no dental or oral injury, airway is normal and with normal occlusion, No bony tenderness RESP: Chest is nontender and has symmetric movement, no ecchymosis, breath sounds are normal no crackles, wheezes or rales CVS: Heart sounds are normal, no murmur noted, No JVD. ABG/GI: Nontender, soft, normal bowel sounds, no distention, no organomegaly, pelvic rock is negative. NEURO: Oriented AOx3, neuro is grossly intact, sensation and motor is normal all 4 extremities moving, cranial nerves II through XII are intact, GCS is 15, PSYCH: Normal mood and affect SKIN: Intact, warm and dry, no crepitus and without decubitus BACK: No CVA tenderness, no vertebral tenderness, no step-off's, no crepitus EXT: Atraumatic, hips are nontender, no pedal edema, normal color and temperature, normal range of motion of extremities with normal tendon exam, 2+ pulses in all four extremities Initial Vital Signs Initial Vital Signs: Vital Signs Temperature 98.1 F 04/18/24 10:34 Pulse Rate 66 04/18/24 10:34 Respiratory Rate 16 04/18/24 10:34 Blood Pressure 134/104 H 04/18/24 10:34 Pulse Oximetry 98 04/18/24 10:34 Oxygen Delivery Method Room Air 04/18/24 10:34 Course Orders Ordered: ED Orders 04/18/24 10:25 Test Serum,Qual Stat 04/18/24 10:[address] angio head and neck Stat Chest [XR chest 1V] Stat EKG-12 Lead Stat 04/18/24 10:29 Complete Blood Count AUTO DIFF Stat Comprehensive Metabolic Panel Stat Ethanol (ETOH) Stat PTT Partial Thromboplastin Dwain Stat Prothrombin Time INR Stat Troponin & CK Cardiac Panel Stat 04/18/24 10:47 COVID19 -Nasal RAPID Stat 04/18/24 11:29 Urinalysis and Microscopic Stat Urine Drug Screen, Rapid Stat Sodium Chloride (Normal Saline 0.9%) 1,000 mls @ 150 mls/hr IV CONT HAYDER Last Admin: 04/18/24 11:45 Dose: 150 mls/hr Documented By: LEONEL Discontinued Medications Acetaminophen (Acetaminophen 325 Mg Tablet) 975 mg PO NOW ONE Stop: 04/18/24 11:46 Last Admin: 04/18/24 11:46 Dose: 975 mg Documented By: LEONEL Diphenhydramine HCl (Diphenhydramine 50 Mg/Ml Vial) 25 mg IV NOW ONE Stop: 04/18/24 11:35 Last Admin: 04/18/24 11:50 Dose: Not Given Documented By: MPO Ketorolac Tromethamine (Ketorolac 30 Mg/Ml Vial) 15 mg IV NOW ONE Stop: 04/18/24 11:35 Last Admin: 04/18/24 11:50 Dose: Not Given Documented By: LEONEL Metoclopramide HCl (Metoclopramide 10 Mg/2 Ml Inj) 10 mg IV NOW ONE Stop: 04/18/24 11:35 Last Admin: 04/18/24 11:50 Dose: Not Given Documented By: LEONEL Vital Signs Vital signs: Vital Signs - 8 hr 04/18/24 10:34 04/18/24 10:43 04/18/24 11:00 Temperature 98.1 F Pulse Rate 66 60 55 L Respiratory Rate 16 Blood Pressure 134/104 H Pulse Oximetry 98 97 97 Oxygen Delivery Method Room Air 04/18/24 11:41 04/18/24 12:00 04/18/24 12:20 Temperature Pulse Rate 56 L 52 L 62 Respiratory Rate Blood Pressure Pulse Oximetry 97 99 97 Oxygen Delivery Method 04/18/24 12:20 Temperature Pulse Rate 66 Respiratory Rate 16 Blood Pressure 153/74 H Pulse Oximetry 98 Oxygen Delivery Method Room Air MDM - Trauma Lab Data 04/18/24 10:29 04/18/24 10:29 Labs: Lab Results 04/18/24 04/18/24 04/18/24 Range/Units 10:25 10:29 10:47 WBC 4.7 (4.5-11.0) X10^3/uL RBC 4.48 (4.0-5.2) X10^6/uL Hgb 12.8 (12.0-16.0) g/dL Hct 38.1 (36-46) % MCV 84.9 (80-100) fL MCH 28.6 (26-34) PG MCHC 33.6 (30-36) % RDW 13.3 (11.6-14.8) % Plt Count 287 (150-400) X10^3/uL Neut % (Auto) 55.3 (50-75) % Lymph % (Auto) 35.3 (25-40) % [place] % (Auto) 7.7 (3-14) % Eos % (Auto) 1.4 L (2-4) % Baso % (Auto) 0.3 (0-2) % Neut # (Auto) 2600 (0825-1865) /uL Lymph # (Auto) 1600 (2123-7673) /uL [place] # (Auto) 400 (0-900) /uL Eos # (Auto) 100 (0-450) /uL Baso # (Auto) 0 (0-100) /uL PT 9.9 (9.4-12.5) SECONDS INR 0.9 (0.9-1.3) APTT 29 (25.1-36.5) SECONDS Sodium 136 L (137-145) mmol/L Potassium 4.0 (3.4-5.1) mmol/L Chloride 103 (98-107) mmol/L Carbon Dioxide 23 (22-32) mmol/L BUN 8 (7-17) mg/dL Creatinine 0.64 (0.52-1.04) mg/dL Estimated GFR > 60 (>60) mL/min BUN/Creatinine Ratio 12.5 (6-22) Glucose 184 H (70-100) mg/dL Calcium 8.8 (8.4-10.2) mg/dL Total Bilirubin 0.4 (0.2-1.3) mg/dL AST 60 H (14-36) IU/L ALT 36 H (<35) IU/L Alkaline Phosphatase 49 (38-126) U/L Total Creatine Kinase 65 (30-135) U/L Troponin I < 0.012 (0.01-0.034) ng/mL Total Protein 6.7 (6.3-8.2) g/dL Albumin 3.8 (3.5-5.0) g/dL Globulin 2.9 (1.7-4.1) g/dL Albumin/Globulin Ratio 1.3 (1.0-2.8) Serum , Qual Negative (Negative) Urine Color Urine Appearance Urine pH (4.5-8.0) Ur Specific [place] (1.000-1.035) Urine Protein (Negative) Urine Glucose (UA) (Negative) g/dL Urine Ketones (NEGATIVE) Urine Occult Blood (Negative) Urine Nitrate (Negative) Urine Bilirubin (NEGATIVE) Urine Urobilinogen (0.2) E.U./dL Ur Leukocyte Esterase (NEGATIVE) Urine RBC (0-5/HPF) Urine WBC (0-5/HPF) Ur Squamous Epith Cells (0-5/HPF) Urine Bacteria (None) Ur Culture Indicated? Vol Urine Centrifuged U Opiates 300ng/mL cut (Negative) Ur Oxycodone Screen (Negative) Urine Methadone Screen (Negative) Ur Barbiturates Screen (Negative) U Tricyclic Antidepress (Negative) Ur Phencyclidine Scrn (Negative) Ur Amphetamines Screen (Negative) U Methamphetamines Scrn (Negative) Ur MDMA Scrn (Ecstasy) (Negative) U Benzodiazepines Scrn (Negative) Urine Cocaine Screen (Negative) U Marijuana (THC) Screen (Negative) Urine Specific [place] (Normal) Ethyl Alcohol < 10 ( - 10) mg/dL Ur Creatinine (Normal) SARS-CoV-2 (PCR) Negative (Negative) 04/18/24 04/18/24 Range/Units 11:29 11:29 WBC (4.5-11.0) X10^3/uL RBC (4.0-5.2) X10^6/uL Hgb (12.0-16.0) g/dL Hct (36-46) % MCV (80-100) fL MCH (26-34) PG MCHC (30-36) % RDW (11.6-14.8) % Plt Count (150-400) X10^3/uL Neut % (Auto) (50-75) % Lymph % (Auto) (25-40) % [place] % (Auto) (3-14) % Eos % (Auto) (2-4) % Baso % (Auto) (0-2) % Neut # (Auto) (2384-1551) /uL Lymph # (Auto) (5346-1920) /uL [place] # (Auto) (0-900) /uL Eos # (Auto) (0-450) /uL Baso # (Auto) (0-100) /uL PT (9.4-12.5) SECONDS INR (0.9-1.3) APTT (25.1-36.5) SECONDS Sodium (137-145) mmol/L Potassium (3.4-5.1) mmol/L Chloride (98-107) mmol/L Carbon Dioxide (22-32) mmol/L BUN (7-17) mg/dL Creatinine (0.52-1.04) mg/dL Estimated GFR (>60) mL/min BUN/Creatinine Ratio (6-22) Glucose (70-100) mg/dL Calcium (8.4-10.2) mg/dL Total Bilirubin (0.2-1.3) mg/dL AST (14-36) IU/L ALT (<35) IU/L Alkaline Phosphatase (38-126) U/L Total Creatine Kinase (30-135) U/L Troponin I (0.01-0.034) ng/mL Total Protein (6.3-8.2) g/dL Albumin (3.5-5.0) g/dL Globulin (1.7-4.1) g/dL Albumin/Globulin Ratio (1.0-2.8) Serum , Qual (Negative) Urine Color Yellow Urine Appearance Clear Urine pH 5.5 Normal (4.5-8.0) Ur Specific [place] 1.010 (1.000-1.035) Urine Protein Negative (Negative) Urine Glucose (UA) Negative (Negative) g/dL Urine Ketones Trace H (NEGATIVE) Urine Occult Blood Trace-intact (Negative) Urine Nitrate Negative (Negative) Urine Bilirubin Negative (NEGATIVE) Urine Urobilinogen 0.2 (0.2) E.U./dL Ur Leukocyte Esterase Negative (NEGATIVE) Urine RBC None seen (0-5/HPF) Urine WBC None seen (0-5/HPF) Ur Squamous Epith Cells 1-5 /hpf (0-5/HPF) Urine Bacteria None seen (None) Ur Culture Indicated? Cult not indicated Vol Urine Centrifuged 10ml (spun) U Opiates 300ng/mL cut Negative (Negative) Ur Oxycodone Screen Negative (Negative) Urine Methadone Screen Negative (Negative) Ur Barbiturates Screen Negative (Negative) U Tricyclic Antidepress Negative (Negative) Ur Phencyclidine Scrn Negative (Negative) Ur Amphetamines Screen Negative (Negative) U Methamphetamines Scrn Negative (Negative) Ur MDMA Scrn (Ecstasy) Negative (Negative) U Benzodiazepines Scrn Positive H (Negative) Urine Cocaine Screen Negative (Negative) U Marijuana (THC) Screen Negative (Negative) Urine Specific [place] Normal (Normal) Ethyl Alcohol ( - 10) mg/dL Ur Creatinine Normal (Normal) SARS-CoV-2 (PCR) (Negative) Point of Care Testing Glucose POC 186 ECG Data Attestation: I personally reviewed and interpreted this ECG as follows: Interpretation: Sinus bradycardia rate of 54 NE 150 QRS 84 QTC of 419, no acute ST elevation or depression. MDM Narrative Medical decision making narrative: Modified trauma, on aspirin with fall and head injury. EMS initiated as code stroke. Labs show white count of 4.7 hemoglobin of 12.8 platelets of 287, coags are negative, electrolytes are appropriate sodium is 136, glucose is 184, AST ALT are slightly elevated at 60 and 36. Troponin is negative. ETOH is negative Head CT non-contrast negative results called to myself by Dr. Sandoval Head and neck angio no significant intracranial arterial abnormality no significant abnormality seen in the arteries of the neck. CXR shows mild pulmonary vascular congestion bibasilar linear scarring and atelectasis no definite focal infiltrate no pleural effusion or pneumothorax. EKG sinus bradycardia rate of 54 On rechecked at 1100 patient states she was feeling much improved her speech is significantly improved. 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 She states she was typically responds to Toradol, Benadryl and Reglan as her migraine cocktail. She was follow up with Neurology and has had Botox in the past. Cervical collar cleared by myself. Patient states her headaches significantly better politely refuses Toradol, Benadryl and Reglan but does ask for some Tylenol. Patient's symptoms have resolved patient feels comfortable with discharge. She has had negative workup otherwise, cervical collar has been cleared. Discussed return precautions. Discharge Plan Departure Patient Disposition: Home Clinical Impression: Closed head injury, Fall Instructions: DI for Closed Head Injury Activity Restrictions/Additional Instructions: I hope you continue to feel improved. Please return if you have any other new or concerning changes severe headaches, new numbness, tingling or weakness, sudden changes to movement, speech, walking, persistent vomiting or other new or concerning changes. Prescriptions: No Action latanoprost 0.005 % drops 1 drp EYE-BOTH ONCE PM atorvastatin 40 mg tablet 40 mg PO ONCE PM lamotrigine 150 mg tablet 150 mg PO BID norgestimate-ethinyl estradiol 0.25-35 mg-mcg tablet 1 tab PO DAILY levothyroxine 100 mcg tablet 100 mcg PO DAILY prazosin 5 mg capsule 5 mg PO ONCE PM lorazepam 0.5 mg tablet 0.5 mg PO BID PRN (Reason: Sleep) trazodone 100 mg tablet 100 mg PO ONCE PM hydrochlorothiazide 12.5 mg Capsule 12.5 mg PO DAILY gabapentin 300 mg capsule 300 mg PO 3XD dorzolamide-timolol 22.3-6.8 mg/mL drops 1 drp EYE-BOTH BID acyclovir 200 mg capsule 400 mg PO BID albuterol sulfate [Ventolin HFA] 90 mcg/actuation Hfa Aerosol Inhaler 2 puff INHALATION Q4-6H PRN (Reason: asthma) lisinopril 40 mg tablet 40 mg PO DAILY insulin aspart U-100 [Novolog FlexPen U-100 Insulin] 100 unit/mL (3 mL) insulin pen See Rx Instructions .ROUTE .COMPLEX Patient Comments: inject subcutaneously as directed PER SLIDING SCALE 100-150: 8 UN... (REFER TO PRESCRIPTION NOTES). Rx Instructions: inject subcutaneously as directed PER SLIDING SCALE 100-150: 8 UN... (REFER TO PRESCRIPTION NOTES). Instructions not finished in computer. insulin glargine [Basaglar KwikPen U-100 Insulin] 100 unit/mL (3 mL) Insulin Pen See Rx Instructions .ROUTE .COMPLEX Rx Instructions: 10 units AM 22 units PM Ajovy Autoinjector 225 mg/1.5 mL Auto-Injector 225 mg SUBCUT QMONTH cholecalciferol (vitamin D3) benzonatate 200 mg capsule 200 mg PO TID PRN (Reason: cough) Qty: 30 0RF azithromycin [Zithromax Z-Jerrell] 250 mg tablet See Rx Instructions .ROUTE .COMPLEX Qty: 6 0RF Rx Instructions: For 250 mg dose pack: take 500 mg today (day 1), then 250 mg for 4 days (days 2-5) famotidine [Pepcid] 20 mg tablet 20 mg PO DAILY 30 Days Qty: 30 0RF Referrals: Teressa Campos PA-C [Primary Care Provider] - Stand Alone Forms: Patient Portal/API/Survey
[2024-04-18 10:34] VITALS: BP 134/104; PULSE 66; RESP 16; TEMP 36.7; O2SAT 98
[2024-04-18 10:38] LABS: Add Manual Diff / Slide Review NO; Basophils Absolute Auto 0 /uL (0-100); Basophils Percent Auto 0.3 % (0-2); Eosinophils Absolute Auto 100 /uL (0-450); Eosinophils Percent Auto 1.4 % (2-4); Hematocrit 38.1 % (36-46); Hemoglobin 12.8 g/dL (12.0-16.0); Lymphocytes Absolute Auto 1600 /uL (1100-4500); Lymphocytes Percent Auto 35.3 % (25-40); Mean Corpuscular HGB Conc 33.6 % (30-36); Mean Corpuscular Hemoglobin 28.6 PG (26-34); Mean Corpuscular Volume 84.9 fL (80-100); Monocytes Absolute Auto 400 /uL (0-900); Monocytes Percent Auto 7.7 % (3-14); Neutrophils Absolute Auto 2600 /uL (1500-7000); Neutrophils Percent Auto 55.3 % (50-75); Platelet Count 287 X10^3/uL (150-400); Red Blood Cell Count 4.48 X10^6/uL (4.0-5.2); Red Cell Distribution Width 13.3 % (11.6-14.8); White Blood Cell Count 4.7 X10^3/uL (4.5-11.0)
[2024-04-18 10:40] LABS: INR 0.9 (0.9-1.3); Prothrombin Time 9.9 SECONDS (9.4-12.5)
[2024-04-18 10:43] VITALS: PULSE 60; O2SAT 97
[2024-04-18 10:43] LABS: PTT Partial Thromboplastin Tim 29 SECONDS (25.1-36.5)
[2024-04-18 10:44] LABS: Alanine Aminotransferase 36 IU/L (<35); Albumin 3.8 g/dL (3.5-5.0); Albumin Globulin Ratio 1.3 (1.0-2.8); Alkaline Phosphatase 49 U/L (38-126); Aspartate Aminotransferase 60 IU/L (14-36); BUN Creatinine Ratio 12.5 (6-22); Bilirubin Total 0.4 mg/dL (0.2-1.3); Blood Urea Nitrogen 8 mg/dL (7-17); Calcium 8.8 mg/dL (8.4-10.2); Carbon Dioxide 23 mmol/L (22-32); Chloride 103 mmol/L (98-107); Creatine Kinase 65 U/L (30-135); Estimated Glomerular Filt Rate > 60 mL/min (>60); Ethanol (ETOH) < 10 mg/dL; Globulin 2.9 g/dL (1.7-4.1); Glucose 184 mg/dL (70-100); HEMOLYSIS < 15 (0-50); Sodium 136 mmol/L (137-145); Total Protein 6.7 g/dL (6.3-8.2)
--- NOTE | 2024-04-18 10:45 | PC.NURSE ---
Pt to ER via EMS. Pt has garbled speech, moving all extremities. Taken to CT scan, BG 186. Pt awake and alert.
--- NOTE | 2024-04-18 10:49 | EKG_ITS ---
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
[2024-04-18 10:54] LABS: Troponin I < 0.012 ng/mL (0.01-0.034)
[2024-04-18 11:00] VITALS: PULSE 55; O2SAT 97
[2024-04-18 11:02] LABS: Pregnancy Test Serum,Qual Negative (Negative)
--- NOTE | 2024-04-18 11:25 | PC.NURSE ---
PT moving all extremities. Reports WISE pain. No deficits noted. A/O X4. Speech is normal/clear.
[2024-04-18 11:37] LABS: UR Morphine/Opiate cutoff 300 Negative (Negative); Ur Creatinine Normal (Normal); Ur Specific Gravity Normal (Normal); Urine Amphetamines Negative (Negative); Urine Barbiturates Negative (Negative); Urine Benzodiazepines Positive (Negative); Urine Cocaine Negative (Negative); Urine MDMA Negative (Negative); Urine Methadone Negative (Negative); Urine Methamphetamines Negative (Negative); Urine Oxycodone Negative (Negative); Urine Phencyclidine Negative (Negative); Urine Tetrahydrocannabinol Negative (Negative); Urine Tricyclic Antidepressant Negative (Negative); Urine pH Normal (Normal)
[2024-04-18 11:41] VITALS: PULSE 56; O2SAT 97
[2024-04-18] MEDS: SODIUM CHLORIDE 0.9% 1,000 ML 150 ML IV (11:45)
[2024-04-18] MEDS: ACETAMINOPHEN 325 MG TABLET 975 MG PO (11:46)
[2024-04-18 12:00] VITALS: PULSE 52; O2SAT 99
--- NOTE | 2024-04-18 12:15 | PC.NURSE ---
Pt up ambulating in mur[place] with steady gait using walking cane. Steady gait noted. No deficits.
[2024-04-18 12:20] VITALS: BP 153/74; PULSE 62; PULSE 66; RESP 16; O2SAT 97; O2SAT 98
[2024-04-18 12:20] LABS: COVID19 -Nasal RAPID Negative (Negative)
[2024-04-18 12:26] LABS: Appearance Urine UA CLEAR; Bilirubin Urine UA NEGATIVE (NEGATIVE); Color Urine UA YELLOW; Glucose Urine UA NEGATIVE (Negative); Ketones Urine UA TRACE (NEGATIVE); Leukocyte Esterase Urine UA NEGATIVE (NEGATIVE); Nitrite Urine UA NEGATIVE (Negative); Occult Blood Urine UA TRACE-INTACT (Negative); Protein Urine UA NEGATIVE (Negative); Urobilinogen Urine UA 0.2 E.U./dL (0.2)
[2024-04-18 12:27] LABS: Urine Volume 10mL (spun); pH Urine UA 5.5 (4.5-8.0)
[2024-04-18 12:29] LABS: Bacteria Urine None Seen; Culture Indicated Urine Cult Not Indicated; RBC Urine None Seen (0-5/HPF); Squamous Epithelial Cell Urine 1-5 /HPF (0-5/HPF); WBC Urine None Seen (0-5/HPF)
== END 2024-04-18 12:40 | disposition home or self-care (01) ==
PROVIDERS: Emergency Provider Emergency Medicine; PCP Physician Assistant
DX: S09.90XA Unspecified injury of head, initial encounter (principal); W10.9XXA Fall (on) (from) unspecified stairs and steps, initial encounter; R42 Dizziness and giddiness; E11.9 Type 2 diabetes mellitus without complications; Z79.4 Long term (current) use of insulin; I10 Essential (primary) hypertension; H54.7 Unspecified visual loss; Z86.73 Personal history of transient ischemic attack (TIA), and cerebral infarction without residual deficits; R29.700 NIHSS score 0; R53.1 Weakness
CPT/HCPCS: 36415; 70450; 70496; 70498; 71045; 80053; 80305; 80320; 81001; 82550; 82962; 84484; 84703; 85025; 85610; 85730; 87635; 93005; 96360; 99285; Q9967

== ENCOUNTER 2024-07-07 15:17 | Emergency (ER) | payer OTHER, SELFPAY ==
[2024-07-07 15:26] VITALS: BP 162/95; PULSE 87; RESP 18; TEMP 36.7; O2SAT 97; BMI 36.0
--- NOTE | 2024-07-07 15:52 | ED_ITS ---
HPI - Recheck/Abnormal Lab/Rx General Chief Complaint: Recheck/Abnormal Lab/Rx Stated Complaint: Fit for [employer] Time Seen by Provider: 07/07/24 15:43 Source: patient, EMS and police Mode of arrival: EMS History of Present Illness HPI narrative: Patient brought in by law enforcement for psychogenic seizure. Patient admits having psychogenic seizures. She was under a lot of stress today at the local police department, she is under arrest. She is under lot of stress. She does not want to be here. No SI or HI. She is awake alert oriented x4. She does desire Tylenol for headache. She is not postictal. Denies any drugs or alcohol. She recently did have eye surgery. She denies any eye pain. She is at baseline with her vision. She does not wish for any further workup or evaluation. She desires discharge to the custody of law enforcement. She does not want any blood work. She wishes for Tylenol and a sandwich and to be discharged Related Data Home Medications Medication Instructions Recorded Confirmed acyclovir 200 mg capsule 400 mg PO BID 03/17/23 03/17/23 albuterol sulfate 90 mcg/actuation 2 puff inhalation Q4-6H PRN asthma 03/17/23 03/17/23 aerosol inhaler (Ventolin HFA) atorvastatin 40 mg tablet 40 mg PO ONCE PM 03/17/23 03/17/23 cholecalciferol (vitamin D3) 03/17/23 dorzolamide 22.3 mg-timolol 6.8 1 drp EYE-BOTH BID 03/17/23 03/17/23 mg/mL eye drops [id number]-vfrm 225 mg/1.5 mL 225 mg SUBCUT QMONTH 03/17/23 03/17/23 subcutaneous auto-injector (Ajovy) gabapentin 300 mg capsule 300 mg PO 3XD 03/17/23 03/17/23 hydrochlorothiazide 12.5 mg capsule 12.5 mg PO DAILY 03/17/23 03/17/23 insulin aspart U-100 100 unit/mL See Rx Instructions .Route .COMPLEX 03/17/23 03/17/23 (3 mL) subcutaneous pen (Novolog FlexPen U-100 Insulin aspart) insulin glargine 100 unit/mL (3 See Rx Instructions .Route .COMPLEX 03/17/23 03/17/23 mL) subcutaneous pen (Basaglar KwikPen U-100 Insulin) lamotrigine 150 mg tablet 150 mg PO BID 03/17/23 03/17/23 latanoprost 0.005 % eye drops 1 drp EYE-BOTH ONCE PM 03/17/23 03/17/23 levothyroxine 100 mcg tablet 100 mcg PO DAILY 03/17/23 03/17/23 lisinopril 40 mg tablet 40 mg PO DAILY 03/17/23 03/17/23 lorazepam 0.5 mg tablet 0.5 mg PO BID PRN Sleep 03/17/23 03/17/23 norgestimate 0.25 mg-ethinyl 1 tab PO DAILY 03/17/23 03/17/23 estradiol 0.035 mg tablet prazosin 5 mg capsule 5 mg PO ONCE PM 03/17/23 03/17/23 trazodone 100 mg tablet 100 mg PO ONCE PM 03/17/23 03/17/23 Previous Rx's Medication Instructions Recorded azithromycin 250 mg tablet See Rx Instructions PO .COMPLEX #6 03/15/24 (Zithromax Z-Jerrell) tabs benzonatate 200 mg capsule 200 mg PO TID PRN cough #30 caps 03/15/24 Allergies Allergy/AdvReac Type Severity Reaction Status Date / Time hydrocodone [From [place]] Allergy Verified 11/04/23 15:03 NSAIDS (Non-Steroidal Allergy Verified 11/04/23 15:03 Anti-Inflamma sumatriptan Allergy Verified 11/04/23 15:03 topiramate [From Topamax] Allergy Verified 11/04/23 15:03 [id number] Antimigraine Allergy Verified 11/04/23 15:03 Agents Review of Systems Review of Systems Narrative: GENERAL: Negative chills, fatigue, malaise, fever, sweats. HEENT: Negative sinus pain, ear pain, sore throat RESPIRATORY: Negative dyspnea, cough CARDIOVASCULAR: Negative chest pain, palpitations GASTROINTESTINAL: Negative vomiting, nausea, abdominal pain : Negative dysuria, frequency, hematuria MUSCULOSKELETAL: Negative muscle or bony pain SKIN: Negative rash, skin lesions NEUROLOGIC: Negative weakness, numbness, positive seizure Psychiatric: Positive anxiety ROS Unobtainable: All systems reviewed & are unremarkable except as noted in HPI and below Exam Narrative Exam Narrative: GENERAL: in no distress, not toxic not dyspneic HEAD: Normocephalic. EYES: Pupils equal round ENT: Mucous membranes moist. NECK: Trachea midline. CARDIOVASCULAR: Regular rate and rhythm RESPIRATORY: Clear to auscultation. Breath sounds equal bilaterally. No wheezes, rales, or rhonchi. GASTROINTESTINAL: Abdomen soft, non-tender EXTREMITIES: No gross deformities. BACK: No flank tenderness. NEURO: AOx4. Clear speech, no confusion. SKIN: Warm and dry PSYCH: Is mild anxious, is cooperative, no SI no HI. No auditory or visual hallucinations Initial Vital Signs Initial Vital Signs: Vital Signs Temperature 98.1 F 07/07/24 15:26 Pulse Rate 87 07/07/24 15:26 Respiratory Rate 18 07/07/24 15:26 Blood Pressure 162/95 H 07/07/24 15:26 Pulse Oximetry 97 07/07/24 15:26 Oxygen Delivery Method Room Air 07/07/24 15:26 Course Orders Ordered: Discontinued Medications Acetaminophen (Acetaminophen 325 Mg Tablet) 975 mg PO NOW ONE Stop: 07/07/24 15:54 Last Admin: 07/07/24 15:57 Dose: 975 mg Documented By: TC Vital Signs Vital signs: Vital Signs - 8 hr 07/07/24 15:26 Temperature 98.1 F Pulse Rate 87 Respiratory Rate 18 Blood Pressure 162/95 H Pulse Oximetry 97 Oxygen Delivery Method Room Air MDM - Recheck/Abnormal Lab/Rx MDM Narrative Medical decision making narrative: Patient brought in by law enforcement for psychogenic seizure. Patient admits having psychogenic seizures. She was under a lot of stress today at the local police department, she is under arrest. She is under lot of stress. She does not want to be here. No SI or HI. She is awake alert oriented x4. She does desire Tylenol for headache. She is not postictal. Denies any drugs or alcohol. She recently did have eye surgery. She denies any eye pain. She is at baseline with her vision. She does not wish for any further workup or evaluation. She desires discharge to the custody of law enforcement. She does not want any blood work. She wishes for Tylenol and a sandwich and to be discharged After history and exam, no blood work or imaging indicated. No seizure p recautions indicated at this time. She is awake alert oriented x4. Not postictal. Tylenol and a sandwich will be provided for her. As she request [facility] Medical records reviewed: No recent visit for this complaint Differential considered: Includes but not limited to anxiety psychogenic seizure pseudo-seizure Consultations: None indicated this time Re-evaluations: 3:58 p.m.. Patient is awake alert oriented x4. Desires discharge to the custody of law enforcement Discussion: Appropriate for discharge, blood sugar was over 200 prior to arrival. Not hypoglycemic event. Patient is awake alert oriented x4 at time of discharge. She desires discharge. Return precautions reviewed Patient denies any drugs or alcohol. No fall or injury. Diagnosis: Medical clearance for incarceration Discharge Plan Departure Patient Disposition: Home Clinical Impression: Medical clearance for incarceration Activity Restrictions/Additional Instructions: See your providers as scheduled. You are medically cleared for longterm/law enforcement custody. Continue your home medications. Return if worse if any questions or concerns. Prescriptions: No Action latanoprost 0.005 % drops 1 drp EYE-BOTH ONCE PM atorvastatin 40 mg tablet 40 mg PO ONCE PM lamotrigine 150 mg tablet 150 mg PO BID norgestimate-ethinyl estradiol 0.25-35 mg-mcg tablet 1 tab PO DAILY levothyroxine 100 mcg tablet 100 mcg PO DAILY prazosin 5 mg capsule 5 mg PO ONCE PM lorazepam 0.5 mg tablet 0.5 mg PO BID PRN (Reason: Sleep) trazodone 100 mg tablet 100 mg PO ONCE PM hydrochlorothiazide 12.5 mg Capsule 12.5 mg PO DAILY gabapentin 300 mg capsule 300 mg PO 3XD dorzolamide-timolol 22.3-6.8 mg/mL drops 1 drp EYE-BOTH BID acyclovir 200 mg capsule 400 mg PO BID albuterol sulfate [Ventolin HFA] 90 mcg/actuation Hfa Aerosol Inhaler 2 puff INHALATION Q4-6H PRN (Reason: asthma) lisinopril 40 mg tablet 40 mg PO DAILY insulin aspart U-100 [Novolog FlexPen U-100 Insulin] 100 unit/mL (3 mL) insulin pen See Rx Instructions .ROUTE .COMPLEX Patient Comments: inject subcutaneously as directed PER SLIDING SCALE 100-150: 8 UN... (REFER TO PRESCRIPTION NOTES). Rx Instructions: inject subcutaneously as directed PER SLIDING SCALE 100-150: 8 UN... (REFER TO PRESCRIPTION NOTES). Instructions not finished in computer. insulin glargine [Basaglar KwikPen U-100 Insulin] 100 unit/mL (3 mL) Insulin Pen See Rx Instructions .ROUTE .COMPLEX Rx Instructions: 10 units AM 22 units PM Ajovy Autoinjector 225 mg/1.5 mL Auto-Injector 225 mg SUBCUT QMONTH cholecalciferol (vitamin D3) benzonatate 200 mg capsule 200 mg PO TID PRN (Reason: cough) Qty: 30 0RF azithromycin [Zithromax Z-Jerrell] 250 mg tablet See Rx Instructions .ROUTE .COMPLEX Qty: 6 0RF Rx Instructions: For 250 mg dose pack: take 500 mg today (day 1), then 250 mg for 4 days (days 2-5) Referrals: Teressa Campos PA-C [Primary Care Provider] - Stand Alone Forms: Patient Portal/API/Survey
[2024-07-07] MEDS: ACETAMINOPHEN 325 MG TABLET 975 MG PO (15:57)
== END 2024-07-07 16:01 | disposition home or self-care (01) ==
PROVIDERS: Emergency Provider Emergency Medicine; PCP Physician Assistant
DX: Z02.89 Encounter for other administrative examinations (principal); G40.89 Other seizures
CPT/HCPCS: 99283

== ENCOUNTER 2024-07-18 11:18 | Emergency (ER) | payer OTHER, SELFPAY ==
[2024-07-18] VITALS (20 sets, daily range): BP systolic 117–166; BP diastolic 64–100; PULSE 58–81; RESP 14–29; TEMP 36.9; O2SAT 94–98; BMI 34.4
--- NOTE | 2024-07-18 11:18 | DI.CT.S_ITS ---
PROCEDURE: CT STROKE INDICATIONS: Positive BE-FAST, Stroke symptoms TECHNIQUE: Noncontrast 4.5 mm thick angled axial sections acquired from the foramen magnum to the vertex, with coronal reformats. For radiation dose reduction, the following was used: automated exposure control, adjustment of mA and/or kV according to patient size. COMPARISON: [facility], CT, CT STROKE, 04/18/2024, 10:31. [facility], CT, CT STROKE, 11/04/2023, 15:04. FINDINGS: Image quality: Diagnostic. CSF spaces: Basal cisterns are patent. No extra-axial fluid collections. Ventricles are normal in size and shape. Brain: No midline shift. No intracranial mass effect or hemorrhage. Ware-white matter interface is normal. Skull and face: Hyperdense appearance of the left globe is unchanged. Calvarium and visualized facial bones are intact, without suspicious lesions. Sinuses: Visualized sinuses and mastoids are clear. IMPRESSION: No acute intracranial pathology. Findings were discussed with the referring provider, Dr. Palacios, by telephone on 07/18/2024 at 10:38 AM ([place] time). This study fulfills neurological imaging criteria for inclusion or exclusion of acute stroke therapies based on available published neurological imaging guidelines. Approved by: Tee Hardwick M.D. on 07/18/2024 at 10:38
--- NOTE | 2024-07-18 11:18 | DI.RAD.S_ITS ---
PROCEDURE: XR CHEST 1V INDICATIONS: Possible stroke TECHNIQUE: One view of the chest was acquired. COMPARISON: [facility], CR, XR CHEST 1V, 04/18/2024, 10:24. [facility], CR, XR CHEST 1V, 02/27/2024, 9:02. FINDINGS: Surgical changes and devices: None. Lungs and pleura: Lungs are clear. No pleural effusions or pneumothorax. Mediastinum: Mediastinal contours appear normal. Heart size is normal. Bones and chest wall: No suspicious bony lesions. Overlying soft tissues appear unremarkable. IMPRESSION: No acute cardiopulmonary abnormality is seen. Approved by: Tee Hardwick M.D. on 07/18/2024 at 10:48
--- NOTE | 2024-07-18 11:18 | EKG_ITS ---
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
--- NOTE | 2024-07-18 11:29 | DI.CT.S_ITS ---
PROCEDURE: CT ANGIO HEAD AND NECK INDICATIONS: R side droop/ word salad TECHNIQUE: After the administration of intravenous contrast, 1 mm thick sections acquired from the aortic arch through the [place] of [place]. 3-dimensional qbtowfh-tohjmjupj-hkpffoiowy (MIP) and/or volume rendering reformats were acquired of the central intracranial vasculature and neck separately. For radiation dose reduction, the following was used: automated exposure control, adjustment of mA and/or kV according to patient size. COMPARISON: [facility], CT, CT ANGIO HEAD AND NECK, 04/18/2024, 10:31. [facility], CT, CT ANGIO HEAD AND NECK, 11/04/2023, 15:04. FINDINGS: Image quality: Diagnostic. Cerebral CT Angiogram: Internal carotid arteries: No acute findings. Intracranial ICA are patent with no significant stenosis. No occlusion. No aneurysm. Anterior cerebral arteries: Unremarkable. No significant stenosis. No occlusion. No aneurysm. Middle cerebral arteries: Unremarkable. No significant stenosis. No occlusion. No aneurysm. Posterior cerebral arteries: Unremarkable. No significant stenosis. No occlusion. No aneurysm. Basilar artery: Unremarkable. No significant stenosis. No occlusion. No aneurysm. Vertebral arteries: Unremarkable as visualized. Dural venous sinuses: Unremarkable given phase of enhancement. Other: Arterial phase appearance of the brain parenchyma is unremarkable. Neck CT Angiogram: Internal carotid arteries: Unremarkable. No significant stenosis. No dissection or occlusion. Common carotid arteries: Unremarkable. No significant stenosis. No dissection or occlusion. External carotid arteries: Unremarkable. No occlusion. Vertebral arteries: Unremarkable. No significant stenosis. No dissection or occlusion. Aortic Arch and Mediastinum: Partially visualized aortic arch unremarkable without evidence of aneurysm. Origins of the great vessels unremarkable. Other: Arterial phase soft tissues of the neck and chest are unremarkable. IMPRESSION: No significant intracranial arterial abnormality is seen. No significant abnormality is seen within the arteries of the neck. Any quantitative measurements of stenosis were performed using NASCET criteria. Approved by: Tee Hardwick M.D. on 07/18/2024 at 10:41
[2024-07-18 11:38] LABS: Add Manual Diff / Slide Review NO; Basophils Absolute Auto 0 /uL (0-100); Basophils Percent Auto 0.4 % (0-2); Eosinophils Absolute Auto 0 /uL (0-450); Eosinophils Percent Auto 0.7 % (2-4); Hematocrit 41.5 % (36-46); Lymphocytes Absolute Auto 1500 /uL (1100-4500); Lymphocytes Percent Auto 27.8 % (25-40); Mean Corpuscular HGB Conc 33.8 % (30-36); Mean Corpuscular Hemoglobin 28.6 PG (26-34); Mean Corpuscular Volume 84.5 fL (80-100); Monocytes Absolute Auto 200 /uL (0-900); Monocytes Percent Auto 4.3 % (3-14); Neutrophils Absolute Auto 3700 /uL (1500-7000); Neutrophils Percent Auto 66.8 % (50-75); Platelet Count 314 X10^3/uL (150-400); Red Blood Cell Count 4.91 X10^6/uL (4.0-5.2); Red Cell Distribution Width 12.5 % (11.6-14.8); White Blood Cell Count 5.5 X10^3/uL (4.5-11.0)
[2024-07-18 11:41] LABS: Prothrombin Time 11.2 SECONDS (9.4-12.5)
[2024-07-18 11:43] LABS: PTT Partial Thromboplastin Tim 28 SECONDS (25.1-36.5)
[2024-07-18 11:44] LABS: Alanine Aminotransferase 42 IU/L (<35); Albumin 4.2 g/dL (3.5-5.0); Albumin Globulin Ratio 1.5 (1.0-2.8); Alkaline Phosphatase 54 U/L (38-126); Aspartate Aminotransferase 26 IU/L (14-36); BUN Creatinine Ratio 20.7 (6-22); Bilirubin Total 0.4 mg/dL (0.2-1.3); Blood Urea Nitrogen 12 mg/dL (7-17); Calcium 9.6 mg/dL (8.4-10.2); Carbon Dioxide 22 mmol/L (22-32); Chloride 100 mmol/L (98-107); Creatine Kinase 48 U/L (30-135); Estimated Glomerular Filt Rate > 60 mL/min (>60); Globulin 2.8 g/dL (1.7-4.1); Glucose 337 mg/dL (70-99); HEMOLYSIS < 15 (0-50); Potassium 4.2 mmol/L (3.4-5.1); Sodium 133 mmol/L (137-145)
[2024-07-18 11:56] LABS: Troponin I < 0.012 ng/mL (0.01-0.034)
[2024-07-18 12:15] LABS: Ur Creatinine Normal (Normal); Ur Specific Gravity Normal (Normal); Urine Amphetamines Negative (Negative); Urine Barbiturates Negative (Negative); Urine Benzodiazepines Negative (Negative); Urine Cocaine Negative (Negative); Urine MDMA Negative (Negative); Urine Methadone Negative (Negative); Urine Opiates Negative (Negative); Urine Oxycodone Negative (Negative); Urine Phencyclidine Negative (Negative); Urine THC Negative (Negative); Urine Tricyclic Antidepressant Negative (Negative); Urine pH Normal (Normal)
--- NOTE | 2024-07-18 12:38 | ED.NEUROSD ---
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 She has taken Reglan along with Benadryl in the past for her headaches, takes metoprolol and gabapentin. Today presented with left-sided weakness and left-sided headache. Screen by triage nursing as code stroke. On Anticoagulants: No Related Data Home Medications Medication Instructions Recorded Confirmed acyclovir 200 mg capsule 400 mg PO BID 03/17/23 07/18/24 albuterol sulfate 90 mcg/actuation 2 puff inhalation Q4-6H PRN asthma 03/17/23 07/18/24 aerosol inhaler (Ventolin HFA) atorvastatin 40 mg tablet 40 mg PO ONCE PM 03/17/23 07/18/24 dorzolamide 22.3 mg-timolol 6.8 1 drp EYE-BOTH BID 03/17/23 07/18/24 mg/mL eye drops [id number]-vfrm 225 mg/1.5 mL 225 mg SUBCUT QMONTH 03/17/23 07/18/24 subcutaneous auto-injector (Ajovy) gabapentin 300 mg capsule 300 mg PO 3XD 03/17/23 07/18/24 hydrochlorothiazide 12.5 mg capsule 12.5 mg PO DAILY 03/17/23 07/18/24 insulin aspart U-100 100 unit/mL See Rx Instructions .Route .COMPLEX 03/17/23 07/18/24 (3 mL) subcutaneous pen (Novolog FlexPen U-100 Insulin aspart) insulin glargine 100 unit/mL (3 See Rx Instructions .Route .COMPLEX 03/17/23 07/18/24 mL) subcutaneous pen (Basaglar KwikPen U-100 Insulin) lamotrigine 150 mg tablet 150 mg PO BID 03/17/23 07/18/24 latanoprost 0.005 % eye drops 1 drp EYE-BOTH ONCE PM 03/17/23 07/18/24 levothyroxine 100 mcg tablet 100 mcg PO DAILY 03/17/23 07/18/24 lisinopril 40 mg tablet 40 mg PO DAILY 03/17/23 07/18/24 lorazepam 0.5 mg tablet 0.5 mg PO BEDTIME 03/17/23 07/18/24 norgestimate 0.25 mg-ethinyl 1 tab PO DAILY 03/17/23 07/18/24 estradiol 0.035 mg tablet prazosin 5 mg capsule 5 mg PO ONCE PM 03/17/23 07/18/24 trazodone 100 mg tablet 100 mg PO ONCE PM 03/17/23 07/18/24 cholecalciferol (vitamin D3) 25 25 mcg PO DAILY 07/18/24 07/18/24 mcg (1,000 unit) tablet (Vitamin D3) multivitamin 1 tab PO DAILY 07/18/24 07/18/24 Previous Rx's Medication Instructions Recorded metoclopramide HCl 10 mg tablet 10 mg PO Q6H PRN nausea and 07/18/24 (Reglan) vomiting #30 tabs Allergies Allergy/AdvReac Type Severity Reaction Status Date / Time hydrocodone [From [place]] Allergy Verified 11/04/23 15:03 NSAIDS (Non-Steroidal Allergy Verified 11/04/23 15:03 Anti-Inflamma sumatriptan Allergy Verified 11/04/23 15:03 topiramate [From Topamax] Allergy Verified 11/04/23 15:03 Obulsjhv-[id number] Antimigraine Allergy Verified 11/04/23 15:03 Agents Review of Systems Hematologic/Lymphatic On Anticoagulants: No Exam Narrative Exam Narrative: GENERAL: Well-developed patient, in mild distress. HEAD: Atraumatic. Normocephalic. EYES: Pupils equal round and reactive. Extraocular motions intact. No scleral icterus. No injection or drainage. ENT: Nose without bleeding, purulent drainage. Throat without erythema, tonsillar hypertrophy or exudate. Airway patent. NECK: Trachea midline. Non tender CARDIOVASCULAR: Regular rate and rhythm without murmurs, gallops, or rubs. RESPIRATORY: Clear to auscultation. Breath sounds equal bilaterally. No wheezes, rales, or rhonchi. GASTROINTESTINAL: Abdomen soft, non-tender, nondistended. EXTREMITIES: No edema or joint tenderness. BACK: Nontender without deformity or crepitance. No flank tenderness. NEURO: (seen by me after resolution of symptoms, now at baseline) AOx3. Cranial nerve exam remarkable for left exotropia apparently old from remote injury. Reported left-sided weakness to arm and leg is resolved along with headache that seems to be resolved. Motor 5/5 upper extremities. Motor 5/5 lower extremities. Light touch intact to face arm and leg symmetrical. Ankle-vital sliding bilateral normal. SKIN: No rash or erythema of visible areas Initial Vital Signs Initial Vital Signs: Vital Signs Temperature 98.4 F 07/18/24 11:32 Pulse Rate 80 07/18/24 11:32 Respiratory Rate 16 07/18/24 11:32 Blood Pressure 150/100 H 07/18/24 11:32 Pulse Oximetry 96 07/18/24 11:32 Oxygen Delivery Method Room Air 07/18/24 11:32 Course Orders Ordered: ED Orders 07/18/24 11:00 Complete Blood Count AUTO DIFF Stat Comprehensive Metabolic Panel Stat PTT Partial Thromboplastin Dwain Stat Prothrombin Time INR Stat Troponin & CK Cardiac Panel Stat 07/18/24 11:18 CT Stroke Stat XR chest 1V Stat EKG-12 Lead Stat 07/18/24 11:29 CT angio head and neck Stat 07/18/24 11:43 Urine Drug Screen, Rapid Stat Discontinued Medications Ondansetron HCl (Ondansetron 4 Mg/2 Ml Inj) 4 mg IV NOW PRN PRN Reason: Nausea And Vomiting Ondansetron HCl (Ondansetron 4 Mg Odt) 4 mg PO NOW PRN PRN Reason: Nausea And Vomiting Vital Signs Vital signs: Vital Signs - 8 hr 07/18/24 11:32 07/18/24 11:34 07/18/24 11:34 Temperature 98.4 F Pulse Rate 80 81 Respiratory Rate 16 17 Blood Pressure 150/100 H 156/96 H Pulse Oximetry 96 95 Oxygen Delivery Method Room Air 07/18/24 12:00 07/18/24 12:00 07/18/24 12:11 Temperature Pulse Rate 62 78 Respiratory Rate 22 22 Blood Pressure 143/77 H Pulse Oximetry 97 97 Oxygen Delivery Method 07/18/24 12:11 07/18/24 12:15 07/18/24 12:15 Temperature Pulse Rate 76 Respiratory Rate 17 Blood Pressure 138/71 144/71 H Pulse Oximetry 97 Oxygen Delivery Method 07/18/24 12:20 07/18/24 12:20 07/18/24 12:25 Temperature Pulse Rate 74 76 Respiratory Rate 17 29 H Blood Pressure 130/72 Pulse Oximetry 98 96 Oxygen Delivery Method 07/18/24 12:25 07/18/24 12:30 07/18/24 12:30 Temperature Pulse Rate 70 Respiratory Rate 14 Blood Pressure 145/78 H 138/79 Pulse Oximetry 96 Oxygen Delivery Method 07/18/24 12:35 07/18/24 12:35 07/18/24 12:40 Temperature Pulse Rate 64 60 Respiratory Rate 20 18 Blood Pressure 138/65 Pulse Oximetry 97 96 Oxygen Delivery Method 07/18/24 12:40 07/18/24 12:46 07/18/24 12:46 Temperature Pulse Rate 58 L Respiratory Rate 22 Blood Pressure 117/64 127/75 Pulse Oximetry 97 Oxygen Delivery Method 07/18/24 12:50 07/18/24 12:50 07/18/24 12:55 Temperature Pulse Rate 65 60 Respiratory Rate 19 28 H Blood Pressure 131/86 Pulse Oximetry 97 97 Oxygen Delivery Method 07/18/24 12:55 07/18/24 13:00 07/18/24 13:00 Temperature Pulse Rate 73 Respiratory Rate 20 Blood Pressure 147/76 H 166/85 H Pulse Oximetry 94 Oxygen Delivery Method 07/18/24 13:06 07/18/24 13:06 07/18/24 13:10 Temperature Pulse Rate 68 66 Respiratory Rate 19 17 Blood Pressure 123/85 Pulse Oximetry 96 96 Oxygen Delivery Method 07/18/24 13:10 07/18/24 13:15 07/18/24 13:15 Temperature Pulse Rate 66 Respiratory Rate 20 Blood Pressure 129/87 148/82 H Pulse Oximetry 97 Oxygen Delivery Method 07/18/24 13:21 07/18/24 13:21 07/18/24 13:26 Temperature Pulse Rate 70 73 Respiratory Rate 25 H 25 H Blood Pressure 162/85 H Pulse Oximetry 97 97 Oxygen Delivery Method 07/18/24 13:26 07/18/24 13:30 07/18/24 13:30 Temperature Pulse Rate 75 Respiratory Rate 26 H Blood Pressure 143/91 H 134/87 Pulse Oximetry 97 Oxygen Delivery Method MDM - Neuro Symptoms/Deficit Lab Data Attestation: I reviewed the patient's lab results. Lab results narrative: White blood cell count 5500, hemoglobin 14, platelets adequate. Glucose 337. Normal serum CO2, normal anion gap. BUN creatinine normal. Potassium 4.2 normal. Slight ALT elevation, otherwise normal liver functions. Urine tox screen negative. Serum CPK 48 normal. Troponin negative. Urine dip negative. 07/18/24 11:00 07/18/24 11:00 Labs: Lab Results 07/18/24 07/18/24 Range/Units 11:00 11:43 WBC 5.5 (4.5-11.0) X10^3/uL RBC 4.91 (4.0-5.2) X10^6/uL Hgb 14.0 (12.0-16.0) g/dL Hct 41.5 (36-46) % MCV 84.5 (80-100) fL MCH 28.6 (26-34) PG MCHC 33.8 (30-36) % RDW 12.5 (11.6-14.8) % Plt Count 314 (150-400) X10^3/uL Neut % (Auto) 66.8 (50-75) % Lymph % (Auto) 27.8 (25-40) % [place] % (Auto) 4.3 (3-14) % Eos % (Auto) 0.7 L (2-4) % Baso % (Auto) 0.4 (0-2) % Neut # (Auto) 3700 (0264-8664) /uL Lymph # (Auto) 1500 (3023-3044) /uL [place] # (Auto) 200 (0-900) /uL Eos # (Auto) 0 (0-450) /uL Baso # (Auto) 0 (0-100) /uL PT 11.2 (9.4-12.5) SECONDS INR 1.0 (0.9-1.3) APTT 28 (25.1-36.5) SECONDS Sodium 133 L (137-145) mmol/L Potassium 4.2 (3.4-5.1) mmol/L Chloride 100 (98-107) mmol/L Carbon Dioxide 22 (22-32) mmol/L BUN 12 (7-17) mg/dL Creatinine 0.58 (0.52-1.04) mg/dL Estimated GFR > 60 (>60) mL/min BUN/Creatinine Ratio 20.7 (6-22) Glucose 337 H (70-99) mg/dL Calcium 9.6 (8.4-10.2) mg/dL Total Bilirubin 0.4 (0.2-1.3) mg/dL AST 26 (14-36) IU/L ALT 42 H (<35) IU/L Alkaline Phosphatase 54 (38-126) U/L Total Creatine Kinase 48 (30-135) U/L Troponin I < 0.012 (0.01-0.034) ng/mL Total Protein 7.0 (6.3-8.2) g/dL Albumin 4.2 (3.5-5.0) g/dL Globulin 2.8 (1.7-4.1) g/dL Albumin/Globulin Ratio 1.5 (1.0-2.8) U Opiates 300ng/mL cut Negative (Negative) Ur Oxycodone Screen Negative (Negative) Urine Methadone Screen Negative (Negative) Ur Barbiturates Screen Negative (Negative) U Tricyclic Antidepress Negative (Negative) Ur Phencyclidine Scrn Negative (Negative) Ur Amphetamines Screen Negative (Negative) U Methamphetamines Scrn Negative (Negative) Ur MDMA Scrn (Ecstasy) Negative (Negative) U Benzodiazepines Scrn Negative (Negative) Urine Cocaine Screen Negative (Negative) U Marijuana (THC) Screen Negative (Negative) Urine pH Normal (Normal) Urine Specific [place] Normal (Normal) Ur Creatinine Normal (Normal) Point of Care Testing Glucose POC 330 Urine Dip Bedside Urine Glucose 1000 mg/dl Bedside Urine Bilirubin - Negative Bedside Urine Ketone - Negative Urine Specific [place] 1.005 Bedside Urine Occult Blood - Negative Bedside Urine pH 6.0 Bedside Urine Protein - Negative Bedside Urine Urobilinogen - Negative Bedside Urine Nitrite - Negative Bedside Urine Leukocytes - Negative Esterase Imaging Data CT scan - head: Radiologist's Impression: [address] [address] [address] Scan Report Signed Patient: Stephanie Dorsey MR#: [id number] : 1980 Acct:[id number] Age/Sex: 43 / F Date of Service: 07/18/24 Loc: ED Accession Number: [id number] Procedure: CT Stroke Ordering Provider: Peng Palacios MD PROCEDURE: CT STROKE INDICATIONS: Positive BE-FAST, Stroke symptoms TECHNIQUE: Noncontrast 4.5 mm thick angled axial sections acquired from the foramen magnum to the vertex, with coronal reformats. For radiation dose reduction, the following was used: automated exposure control, adjustment of mA and/or kV according to patient size. COMPARISON: [facility], CT, CT STROKE, 04/18/2024, 10:31. [facility], CT, CT STROKE, 11/04/2023, 15:04. FINDINGS: Image quality: Diagnostic. CSF spaces: Basal cisterns are patent. No extra-axial fluid collections. Ventricles are normal in size and shape. Brain: No midline shift. No intracranial mass effect or hemorrhage. Ware-white matter interface is normal. Skull and face: Hyperdense appearance of the left globe is unchanged. Calvarium and visualized facial bones are intact, without suspicious lesions. Sinuses: Visualized sinuses and mastoids are clear. IMPRESSION: No acute intracranial pathology. Findings were discussed with the referring provider, Dr. Palacios, by telephone on 07/18/2024 at 10:38 AM ([place] time). This study fulfills neurological imaging criteria for inclusion or exclusion of acute stroke therapies based on available published neurological imaging guidelines. Approved by: Tee Hardwick M.D. on 07/18/2024 at 10:38 CTA - brain/neck: Radiologist's Impression: Stephanie Dorsey??43??F??1980 ? Allergy/Adv: hydrocodone, NSAIDS (Non-Steroidal Anti-Inflamma, sumatriptan, topiramate, [id number] Antimigraine Agents (More??) Close Head/Neck CTA (Signed) Tee Hardwick - 07/18/24 Chest X-Ray (Signed) Tee Hardwick - 07/18/[address] (Signed) Tee Hardwick - 07/18/24 Head/Neck CTA (Signed) Donato Sandoval - 04/18/24 Chest X-Ray (Signed) Jerrell Macdonald - 04/18/[address] (Signed) Donato Sandoval - 04/18/[address] (Signed) Jerrell Macdonald - 03/30/24 Chest X-Ray (Signed) Vincent Archibald - 03/15/24 Chest X-Ray (Signed) Edinson Nazario - 02/27/24 Head/Neck CTA (Signed) Nella Iglesias - 11/04/[address] (Signed) Yimi Sandovalderic - 11/04/23 Abdomen/Pelvis CT (Signed) Jovi Meltonaj - 03/17/23 Launch?Image [address] [address] [address] Scan Report Signed Patient: Stephanie Dorsey MR#: [id number] : 1980 Acct:[id number] Age/Sex: 43 / F Date of Service: 07/18/24 Loc: ED Accession Number: [id number] Procedure: CT angio head and neck Ordering Provider: Peng Palacios MD PROCEDURE: CT ANGIO HEAD AND NECK INDICATIONS: R side droop/ word salad TECHNIQUE: After the administration of intravenous contrast, 1 mm thick sections acquired from the aortic arch through the [place] of [place]. 3-dimensional fsrvcgx-prbzhzrkr-tdelyrxkct (MIP) and/or volume rendering reformats were acquired of the central intracranial vasculature and neck separately. For radiation dose reduction, the following was used: automated exposure control, adjustment of mA and/or kV according to patient size. COMPARISON: [facility], CT, CT ANGIO HEAD AND NECK, 04/18/2024, 10:31. [facility], CT, CT ANGIO HEAD AND NECK, 11/04/2023, 15:04. FINDINGS: Image quality: Diagnostic. Cerebral CT Angiogram: Internal carotid arteries: No acute findings. Intracranial ICA are patent with no significant stenosis. No occlusion. No aneurysm. Anterior cerebral arteries: Unremarkable. No significant stenosis. No occlusion. No aneurysm. Middle cerebral arteries: Unremarkable. No significant stenosis. No occlusion. No aneurysm. Posterior cerebral arteries: Unremarkable. No significant stenosis. No occlusion. No aneurysm. Basilar artery: Unremarkable. No significant stenosis. No occlusion. No aneurysm. Vertebral arteries: Unremarkable as visualized. Dural venous sinuses: Unremarkable given phase of enhancement. Other: Arterial phase appearance of the brain parenchyma is unremarkable. Neck CT Angiogram: Internal carotid arteries: Unremarkable. No significant stenosis. No dissection or occlusion. Common carotid arteries: Unremarkable. No significant stenosis. No dissection or occlusion. External carotid arteries: Unremarkable. No occlusion. Vertebral arteries: Unremarkable. No significant stenosis. No dissection or occlusion. Aortic Arch and Mediastinum: Partially visualized aortic arch unremarkable without evidence of aneurysm. Origins of the great vessels unremarkable. Other: Arterial phase soft tissues of the neck and chest are unremarkable. IMPRESSION: No significant intracranial arterial abnormality is seen. No significant abnormality is seen within the arteries of the neck. Any quantitative measurements of stenosis were performed using NASCET criteria. Approved by: Tee Hardwick M.D. on 07/18/2024 at 10:41 Chest x-ray: Radiologist's Impression: [address] [address] XRay Report Signed Patient: Stephanie Dorsey MR#: [id number] : 1980 Acct:[id number] Age/Sex: 43 / F Date of Service: 07/18/24 Loc: ED Accession Number: [id number] Procedure: XR chest 1V Ordering Provider: Peng Palacios MD PROCEDURE: XR CHEST 1V INDICATIONS: Possible stroke TECHNIQUE: One view of the chest was acquired. COMPARISON: [facility], CR, XR CHEST 1V, 04/18/2024, 10:24. [facility], CR, XR CHEST 1V, 02/27/2024, 9:02. FINDINGS: Surgical changes and devices: None. Lungs and pleura: Lungs are clear. No pleural effusions or pneumothorax. Mediastinum: Mediastinal contours appear normal. Heart size is normal. Bones and chest wall: No suspicious bony lesions. Overlying soft tissues appear unremarkable. IMPRESSION: No acute cardiopulmonary abnormality is seen. Approved by: Tee Hardwick M.D. on 07/18/2024 at 10:48 ECG Data Attestation: I personally reviewed and interpreted this ECG as follows: Interpretation: Normal sinus rhythm with rate of 69, no obvious ST segment elevation or depression changes. [place] 154, QRS 86, QTC 432. [facility] Narrative Medical decision making narrative: 43-year-old female with history of diabetes, exotropia lateral right eye gaze from remote trauma, history of prior stroke status post tPA 2019, and recurrent left-sided headaches with left sided hemiparesis. Triaged as code stroke with left-sided headache and left-sided weakness. Per nursing protocol was sent for CT head noncontrast, CT angio of the head and neck vessels. Screening labs were requested. Glucose normal. On my evaluation of patient symptoms had resolved, headache had resolved as well. Imaging tests ordered and performed, results are pending. CT head noncontrast, no acute changes. See radiology report. CT angiogram head and neck vessels, no thromboses, no significant narrowing. See radiology report. Chest x-ray negative. See radiology report. Screening labs unremarkable except for glucose 300, anion gap normal. Patient feels better and would like to go home, was able to ambulate. She we would like a refill of Reglan that she takes with OTC Benadryl that has been helpful in the past. She will follow up with her [facility] based neurologist, to consider Botox in the future. Ambulatory. At baseline. Discharged home per patient request with family. Follow up with her [facility] based neurologists advised, possible future Botox. Refill Reglan prescription sent to her pharmacy, to take with OTC Benadryl. She is supposed to be avoiding NSAIDs, no refill of Ketoralac, encouraged to stop taking Ketoralac which itself is an NSAID. Avoid Motrin, naproxen. Follow up with Neurology as above. Home with family. Return precautions discussed. Discharge Plan Departure Patient Disposition: Home Clinical Impression: Hemiplegic migraine Activity Restrictions/Additional Instructions: Complex history of recurrent migraine headaches with associated left-sided weakness in the past, prior diagnosis of stroke 2020 treated with tPA thrombolytic therapy, old left eye injury with exotropia (lateral deviation) on examination, followed by Neurology at [facility] in [place] with consideration for future Botox treatment therapy, taking gabapentin. Today with left-sided weakness, which has happened in the past with ophthalmic migraines, although you did have a history of stroke reported. CT head showed no acute changes. CT angiogram head and neck vessels showed no acute changes or thromboses changes. You seemed to have resolution of symptoms without specific treatment. You felt better and wanted to go home. You were able to ambulate. Your left-sided arm and leg weakness had all resolved. In the past you have been told not to take NSAID medications, but have been tried in the past on outpatient regimen of ketorolac which is an NSAID medication. Avoid ketorolac and other NSAIDs for now if you are to avoid that class of medications. In the past you have responded to Benadryl with Reglan and would like refill this medication, Benadryl is available [id number]. We will prescribe refill for Reglan to take as needed for your headaches. Continue your metoprolol and your gabapentin chronic medications. Consider follow up with your neurologist to see if you might be a candidate for Botox therapies or other migraine specific treatments. Return earlier to this/nearest emergency department for any change worsening symptoms or any concerns prior. Prescriptions: New metoclopramide HCl [Reglan] 10 mg tablet 10 mg PO Q6H PRN (Reason: nausea and vomiting) Qty: 30 0RF No Action multivitamin [Daily Multivitamin] Tablet 1 tab PO DAILY cholecalciferol (vitamin D3) [Vitamin D3] 25 mcg (1,000 unit) Tablet 25 mcg PO DAILY latanoprost 0.005 % drops 1 drp EYE-BOTH ONCE PM atorvastatin 40 mg tablet 40 mg PO ONCE PM lamotrigine 150 mg tablet 150 mg PO BID norgestimate-ethinyl estradiol 0.25-35 mg-mcg tablet 1 tab PO DAILY levothyroxine 100 mcg tablet 100 mcg PO DAILY prazosin 5 mg capsule 5 mg PO ONCE PM lorazepam 0.5 mg tablet 0.5 mg PO BEDTIME trazodone 100 mg tablet 100 mg PO ONCE PM hydrochlorothiazide 12.5 mg Capsule 12.5 mg PO DAILY gabapentin 300 mg capsule 300 mg PO 3XD dorzolamide-timolol 22.3-6.8 mg/mL drops 1 drp EYE-BOTH BID acyclovir 200 mg capsule 400 mg PO BID albuterol sulfate [Ventolin HFA] 90 mcg/actuation Hfa Aerosol Inhaler 2 puff INHALATION Q4-6H PRN (Reason: asthma) lisinopril 40 mg tablet 40 mg PO DAILY insulin aspart U-100 [Novolog FlexPen U-100 Insulin] 100 unit/mL (3 mL) insulin pen See Rx Instructions .ROUTE .COMPLEX Patient Comments: inject subcutaneously as directed PER SLIDING SCALE 100-150: 8 UN... (REFER TO PRESCRIPTION NOTES). Rx Instructions: inject subcutaneously as directed PER SLIDING SCALE 100-150: 8 UN... (REFER TO PRESCRIPTION NOTES). Instructions not finished in computer. insulin glargine [Basaglar KwikPen U-100 Insulin] 100 unit/mL (3 mL) Insulin Pen See Rx Instructions .ROUTE .COMPLEX Rx Instructions: 10 units AM 22 units PM Ajovy Autoinjector 225 mg/1.5 mL Auto-Injector 225 mg SUBCUT QMONTH Referrals: Teressa Campos PA-C [Primary Care Provider] - Stand Alone Forms: Patient Portal/API/Survey
--- NOTE | 2024-07-18 13:44 | PC.NURSE ---
After provider Philip sees patient he asks for ambulation trial. Pt is able to stand up on own and walk to the bathroom and back. She is steady on her feet and talking to this RN appropriately and making sense. Provider Philip made aware.
== END 2024-07-18 13:55 | disposition home or self-care (01) ==
PROVIDERS: Emergency Provider Emergency Medicine; PCP Physician Assistant
DX: G43.409 Hemiplegic migraine, not intractable, without status migrainosus (principal); Z86.73 Personal history of transient ischemic attack (TIA), and cerebral infarction without residual deficits
CPT/HCPCS: 36415; 70450; 70496; 70498; 71045; 80053; 80305; 81003; 82550; 82962; 84484; 85025; 85610; 85730; 93005; 99284; Q9967